=== PATIENT | male | born 1950 | race Caucasian/White ===

== ENCOUNTER 2016-11-15 09:56 | Emergency (ER) | payer MEDICAID ==
[2016-11-15 10:02] VITALS: TEMP 98.1
[2016-11-15] MEDS ORDERED: IBUPROFEN 200 MG TAB PO ONE (10:22)
[2016-11-15] MEDS ORDERED: CYCLOBENZAPRINE 10 MG TAB PO ONE (10:22)
--- NOTE | 2016-11-15 10:22 | EDPHY ---
H & P Smoking Status: Heavy smoker Time Seen by Provider: 11/15/16 10:19 HPI/ROS: HPI: Mr. 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 Does not know any injuries in the last 2 days. Patient is homeless and sleeps in his vehicle. No history kidney stone. Patient reports that the pain that he is feeling today is nonradiating, aching, more towards the right side and similar to prior episodes of low back pain exacerbation. Modifying Factors: Has not tried any [id number]-pab-[id number] pain medication Comment: ROS: Eyes: No blurred vision Respiratory: No shortness of breath, no cough Cardiovascular: No chest pain Gastrointestinal: No nausea, no vomiting no diarrhea Genitourinary: No dysuria Extremities: No myalgias Neurologic: No weakness, no numbness Skin: No rashes Hematologic: No bruising, no bleeding MEDICAL/SURGICAL HISTORY: Hypertension, chronic low back pain, hyperlipidemia, bipolar, schizoaffective disorder (Elyssa Burton) Social History: Homeless. Does follow with [facility]. Reports compliance with his psychiatric medications. (Elyssa Burton) Physical Exam: CONSTITUTIONAL: Pleasant adult white male, awake and alert, no obvious distress HEENT: Atraumatic and normocephalic, PERRL, EOMI. Tympanic membranes clear. . Oropharynx clear, no exudate and moist pink mucosa. Airway patent. No lymphadenopathy. No meningismus. Cardiovascular: Normal S1/S2, regular rate, regular rhythm, without murmur rub or gallop. PULMONARY/CHEST: Symmetrical and nontender. Clear to auscultation bilaterally Good air movement. No accessory muscle usage. ABDOMEN: Soft, nondistended, nontender, no rebound, no guarding, no peritoneal signs, no masses or organomegaly. No CVAT. EXTREMITIES: 2/2 pulses, no deformities, no clubbing, no cyanosis or edema. BACK: Mild right lumbar paraspinous muscle tenderness, paraspinal muscle spasm , deep tendon reflexes 2/2, mild pain with right straight leg raise, no pain with left straight leg raise, good flexion extension and rotation. Able to walk on heels and toes without difficulty. NEUROLOGICAL: no focal neuro deficits. GCS 15. SKIN: Warm and dry, no erythema. no rash. Good capillary refill. (Elyssa Burton) Constitutional: Initial Vital Signs Temperature (C) 36.7 C 11/15/16 09:59 Heart Rate 100 11/15/16 09:59 Respiratory Rate 18 11/15/16 09:59 Blood Pressure 121/92 H 11/15/16 09:59 O2 Sat (%) 94 11/15/16 09:59 O2 Delivery Mode Room Air Allergies/Adverse Reactions: No Known Allergies Allergy (Verified 01/18/16 10:15) Home Medications: Medication Instructions Recorded [place] Carbonate [[place] 300 mg PO DAILY #2 cap 07/12/15 Carbonate Cap 300 mg (RX)] QUEtiapine FUMARATE [SEROquel] 200 mg PO DAILY #1 tab 07/12/15 clonazePAM [KlonOPIN] 1 mg PO BID #4 tab 07/12/15 [place] Carbonate ER [Eskalith Cr 450 mg PO DAILY #3 tab 01/17/16 450 mg (*)] QUEtiapine FUMARATE [Seroquel 300 mg PO HS #3 tab 01/17/16 300mg (*)] clonazePAM [klonoPIN (*)] 1 mg PO BID #6 tab 01/17/16 Cyclobenzaprine [Flexeril 10 MG 10 mg PO TID PRN #15 tab 11/15/16 (*)] Lidocaine 5% [Lidoderm 5% Patch 1 ea TD DAILY #10 patch 11/15/16 (*)] Medical Decision Making - Diagnostics Imaging Results: Imaging Impressions Lumbar Spine X-Ray 11/15/16 10:05 Impression: Advanced L4-L5 degenerative disk disease. ED Course/Re-evaluation: Lumbosacral x-ray, urinalysis, oral medications ordered Lumbar spine x-ray reviewed and shows L4-L5 disc space narrowing and moderate degenerative changes. advised RICE, NSAIDS, muscle relaxers and lidoderm patch prn Symptoms persist would benefit from an MRI outpatient No signs of neurovascular compromise, fracture, cauda equina syndrome, saddle anesthesia After 2 hours in the ER patient unable to give urine sample despite given oral liquids. No urinary symptoms. Low risk for urinary tract infection kidney stone. Moderate relief of pain at discharge (Elyssa Burton) The patient was evaluated and managed by the physician operations and intelligence assistant. I have reviewed this chart and I agree with the findings and plan of care as documented , as indicated by my signature. I am the secondary supervising physician. (Elaina Haile) Differential Diagnosis: Back pain including but not limited to muscular pain, herniated disc, spine fracture, intra-abdominal causes and urinary tract infection. (Elyssa Burton) - Data Points Medications Given: Discontinued Medications Cyclobenzaprine HCl (Flexeril) 10 mg PO EDNOW ONE Stop: 11/15/16 10:23 Last Admin: 11/15/16 10:29 Dose: 10 mg Ibuprofen (Motrin) 800 mg PO EDNOW ONE Stop: 11/15/16 10:23 Last Admin: 11/15/16 10:28 Dose: 800 mg Departure - Departure Disposition: Home, Routine, Self-Care Clinical Impression: Degenerative lumbar disc Lumbar back pain Qualifiers: Chronicity: chronic Back pain laterality: right Sciatica presence: without sciatica Qualified Code(s): M54.5 - Low back pain Condition: Good Instructions: Low Back Strain (ED), Chronic Back Pain (ED), Lower Back Exercises (ED) Referrals: Patient,NotPresent [Unknown] - As per Instructions [facility],. [Clinic] - As per Instructions Prescriptions: Cyclobenzaprine [Flexeril 10 MG (*)] 10 mg PO TID PRN #15 tab PRN Reason: Spasms Lidocaine 5% [Lidoderm 5% Patch (*)] 1 ea TD DAILY #10 patch
[2016-11-15 11:13] VITALS: BP 104/75; PULSE 81; RESP 16; O2SAT 95
== END 2016-11-15 11:17 | disposition home or self-care (01) ==
LOC: EDUNIT#
DX: M51.36 Other intervertebral disc degeneration, lumbar region (principal); F17.200 Nicotine dependence, unspecified, uncomplicated; I10 Essential (primary) hypertension

== ENCOUNTER 2016-11-21 21:10 | Emergency (ER) | payer MEDICAID ==
--- NOTE | 2016-11-21 23:08 | EDPHY ---
H & P Stated Complaint: chronic back pain Source: Patient - Personal History Current Tetanus Diphtheria and Acellular Pertussis (TDAP): Yes Tetanus Vaccine Date: 2006 - Medical/Surgical History Hx Asthma: No Hx Chronic Respiratory Disease: No Hx Diabetes: No Hx Cardiac Disease: No Hx Renal Disease: No Hx Cirrhosis: No Hx Alcoholism: Yes Hx HIV/AIDS: No Hx Splenectomy or Spleen Trauma: No Other PMH: HTN, Hyperlipidemia, bipolar, schizoaffective - Social History Smoking Status: Heavy smoker HPI/ROS: CHIEF COMPLAINT: Back pain, out of Flexeril HISTORY OF PRESENT ILLNESS: Patient complains of being out of his Flexeril and having back pain. He will not provide any specific details, and and it is difficult to discern his words at times. He says that his back has been hurting him more and that he took his last Flexeril several days ago. He denies chest or abdominal pain. He will not answer any further questions, thus I cannot obtain any other history, associated complaints or modifying factors. Patient is reportedly homeless living at a intermediate locally. REVIEW OF SYSTEMS: Ten systems reviewed and are negative unless otherwise noted in the HPI PAST MEDICAL HISTORY: Multiple. Reviewed with patient as documented SOCIAL HISTORY: Smoker. Currently homeless living in shelters. FAMILY HISTORY: Noncontributory EXAMINATION General Appearance: Somnolent, no distress, unkempt Head: normocephalic, atraumatic Eyes: Pupils equal and round, no conjunctival pallor or injection. No nystagmus or dysconjugate gaze. Will not follow commands to test EOMs. ENT, Mouth: Mucous membranes moist. Airway patent Neck: Normal inspection, supple, non-tender Respiratory: Lungs are clear to auscultation. No wheezing, rhonchi or crackles Cardiovascular: Regular rate and rhythm. No murmur Gastrointestinal: Obese Abdomen is soft and nontender. Nondistended. No rigidity. No guarding. Back: Soft tissue tenderness in the lumbar spine, no bony abnormalities. No crepitus, step-off or deformity. He will not follow commands well enough to test full range of motion Neurological: Alert to person and place. Will answer my questions regarding time and scenario. Moving all 4 extremities spontaneously. Strength and will be tested due to lack of cooperation Skin: Warm and dry, no rash. Multiple areas of nonspecific dermatitis. No lacerations abrasions or contusions. Extremities: Nontender, no pedal edema Psychiatric: Mood and affect normal DIFFERENTIAL DIAGNOSES: Including but not limited to acute alcohol intoxication, polysubstance abuse, somnolence, dehydration, back pain, toxic lithium, accidental overdose MDM: 11:05 p.m. Chronic back pain with complaint of worsening back pain and lack of Flexeril as he ran out of a. Patient does appear to be intoxicated, thus I will obtain a breath alcohol test. He is in no acute distress. Benign abdominal examination. No midline tenderness of the back on examination. No neurovascular abnormalities distally that would suggest acute cord compression or cauda equina. No abdominal pain. 11:10 p.m. Breath alcohol test is 0. Given the patient's somnolence and difficulty focusing , a border multiple laboratory studies. I did not order an x-ray of the lumbar spine as he have 1 perform less than 1 week ago here. 12:30 A.M. I have re-evaluated the patient. He is now more awake and less somnolent that he 1st was during my 1st examination. CBC, chemistry and ammonia level are all negative labs. Chest x-ray reveals a possible early left lower lobe pneumonia. Clinically I do not appreciate this on examination. Given the patient's homeless status and currently residing at shelters, I will treat him empirically. Treat him with Zithromax and albuterol inhaler. I will refer him back to [facility] for ongoing back pain that he complains of. No evidence of acute cord compression or cauda equina on this examination this evening. SUPERVISION: Patient was evaluated in conjunction with the supervising physician. Please see their note for details. (Kwadwo Alcocer) 256AM: I did re-evaluate the patient. He is resting comfortably. He is conversive. He is homeless. He has no complaints at this time. He is requesting to sleep. 0553AM: Patient ambulated well throughout the emergency room. He is no longer sleepy. Wide awake. He is agreeable on discharge. Antibiotic azithromycin provided albuterol inhaler provided. Vital signs stable. Blood work stable. Chronic back pain. No leg weakness no saddle anesthesia no fever. No signs of cauda equina. Recommend following up his primary care doctor return emergency room there is any worsening symptoms questions or concerns he understands. ( Angel Solomon) Constitutional: Initial Vital Signs Temperature (C) 37 C 11/21/16 21:18 Heart Rate 100 11/21/16 21:18 Respiratory Rate 14 11/21/16 21:18 Blood Pressure 117/86 H 11/21/16 21:18 O2 Sat (%) 90 L 11/21/16 21:18 O2 Delivery Mode Room Air Allergies/Adverse Reactions: No Known Allergies Allergy (Verified 11/21/16 21:18) Home Medications: Medication Instructions Recorded [place] Carbonate [[place] 300 mg PO DAILY #2 cap 07/12/15 Carbonate Cap 300 mg (RX)] QUEtiapine FUMARATE [SEROquel] 200 mg PO DAILY #1 tab 07/12/15 clonazePAM [KlonOPIN] 1 mg PO BID #4 tab 07/12/15 [place] Carbonate ER [Eskalith Cr 450 mg PO DAILY #3 tab 01/17/16 450 mg (*)] QUEtiapine FUMARATE [Seroquel 300 mg PO HS #3 tab 01/17/16 300mg (*)] clonazePAM [klonoPIN (*)] 1 mg PO BID #6 tab 01/17/16 Cyclobenzaprine [Flexeril 10 MG 10 mg PO TID PRN #15 tab 11/15/16 (*)] Lidocaine 5% [Lidoderm 5% Patch 1 ea TD DAILY #10 patch 11/15/16 (*)] Azithromycin [Zithromax] 250 mg PO DAILY #4 tab 11/22/16 Departure - Departure Disposition: Home, Routine, Self-Care Clinical Impression: Chronic back pain Qualifiers: Back pain location: low back pain Back pain laterality: unspecified Sciatica presence: without sciatica Qualified Code(s): M54.5 - Low back pain Pneumonia Qualifiers: Pneumonia type: due to unspecified organism Laterality: left Lung location: lower lobe of lung Qualified Code(s): J18.1 - Lobar pneumonia, unspecified organism Condition: Good Instructions: Acute Bronchitis (ED), Bacterial Pneumonia (ED), Chronic Back Pain (ED), Lower Back Exercises (ED) Referrals: NONE *PRIMARY CARE P,. [Primary Care Provider] - As per Instructions Marley Ram DO [Doctor of Osteopathy] - As per Instructions [facility],. [Clinic] - As per Instructions Prescriptions: Azithromycin [Zithromax] 250 mg PO DAILY #4 tab
[2016-11-21] MEDS ORDERED: NS 1,000 ML IV ONE (23:10)
[2016-11-21 23:44] LABS: ANION GAP 7 mEq/L (8-16); CALCIUM 8.7 mg/dL (8.5-10.4); CARBON DIOXIDE 22 mEq/l (22-31); CHLORIDE 110 mEq/L (97-110); CREATININE 0.7 mg/dL (0.7-1.3); ETHANOL SERUM < 10 mg/dL (0-10); GLOMERULAR FILTRATION RATE > 60; GLUCOSE 96 mg/dL (70-100); LITHIUM 0.3 mEq/L (0.6-1.2); SALICYLATE < 1.0 mg/dL (2.0-20.0); SODIUM 139 mEq/L (134-144)
[2016-11-21 23:53] LABS: % IMMATURE GRANULYOCYTES 0.3 % (0.0-1.1); ABSOLUTE IMMATURE GRANULOCYTES 0.02 10^3/uL (0.00-0.10); ADD DIFF? NO; ADD MORPH? NO; ADD SCAN? YES; ATYPICAL LYMPHOCYTE FLAG 10 (0-99); FRAGMENT RBC FLAG 0 (0-99); HEMATOCRIT 41.8 % (40.0-51.0); HEMOGLOBIN 14.1 g/dL (13.7-17.5); LEFT SHIFT FLG 0 (0-99); LIPEMIA HEMOLYSIS FLAG 80 (0-99); MEAN CELL HEMOGLOBIN 30.9 pg (27.9-34.1); MEAN CELL HEMOGLOBIN CONCENTR. 33.7 g/dL (32.4-36.7); MEAN CELL VOLUME 91.7 fL (81.5-99.8); MEAN PLATELET VOLUME 11.2 fL (8.7-11.7); PLATELET COUNT 185 10^3/uL (150-400); RED BLOOD CELL COUNT 4.56 10^6/uL (4.40-6.38); RED CELL DISTRIBUTION WIDTH 13.8 % (11.5-15.2)
[2016-11-22 00:02] LABS: PLATELET CLUMPS FLAG 300 (0-99)
[2016-11-22 00:14] LABS: SCAN NEGATIVE
[2016-11-22] MEDS ORDERED: ALBUTEROL INH PREPACK MDI TAKEHOME ONE ×2 (00:52→05:47)
[2016-11-22] MEDS ORDERED: AZITHROMYCIN 250 MG TAB PO ONE ×2 (00:52→05:47)
[2016-11-22 03:16] LABS: COLOR YELLOW; LEUKOCYTE ESTERASE,URINE NEGATIVE (NEGATIVE); NITRITE,URINE NEGATIVE (NEGATIVE)
[2016-11-22 03:18] LABS: BACTERIA TRACE /hpf (NONE SEEN); MUCUS TRACE /lpf (NONE-1+)
[2016-11-22 05:57] VITALS: RESP 18
[2016-11-22 05:59] VITALS: BP 145/89; PULSE 90; TEMP 98.4; O2SAT 96
== END 2016-11-22 05:58 | disposition home or self-care (01) ==
LOC: EDUNIT#
DX: M54.5 Low back pain (principal); J18.9 Pneumonia, unspecified organism; I10 Essential (primary) hypertension; F17.200 Nicotine dependence, unspecified, uncomplicated; E86.9 Volume depletion, unspecified
CPT/HCPCS: 80305; G0480

== ENCOUNTER 2016-12-01 17:42 | Emergency (ER) | payer MEDICAID ==
[2016-12-01 18:24] LABS: % IMMATURE GRANULYOCYTES 0.4 % (0.0-1.1); ABSOLUTE IMMATURE GRANULOCYTES 0.03 10^3/uL (0.00-0.10); ADD DIFF? NO; ADD MORPH? NO; ADD SCAN? NO; ATYPICAL LYMPHOCYTE FLAG 20 (0-99); FRAGMENT RBC FLAG 0 (0-99); HEMATOCRIT 44.5 % (40.0-51.0); HEMOGLOBIN 14.8 g/dL (13.7-17.5); LEFT SHIFT FLG 0 (0-99); LIPEMIA HEMOLYSIS FLAG 80 (0-99); MEAN CELL HEMOGLOBIN CONCENTR. 33.3 g/dL (32.4-36.7); MEAN CELL VOLUME 93.1 fL (81.5-99.8); PLATELET CLUMPS FLAG 0 (0-99); PLATELET COUNT 327 10^3/uL (150-400); RED BLOOD CELL COUNT 4.78 10^6/uL (4.40-6.38); RED CELL DISTRIBUTION WIDTH 13.7 % (11.5-15.2)
[2016-12-01 18:40] LABS: ANION GAP 12 mEq/L (8-16); CALCIUM 9.4 mg/dL (8.5-10.4); CARBON DIOXIDE 21 mEq/l (22-31); CHLORIDE 110 mEq/L (97-110); CREATININE 0.7 mg/dL (0.7-1.3); ETHANOL SERUM < 10 mg/dL (0-10); GLOMERULAR FILTRATION RATE > 60; GLUCOSE 91 mg/dL (70-100); POTASSIUM 3.9 mEq/L (3.5-5.2); SODIUM 143 mEq/L (134-144)
[2016-12-01 19:08] VITALS: RESP 16
--- NOTE | 2016-12-01 19:37 | EDPHY ---
Mental Health [facility] Previous Psychiatric History: previous inpatient psychiatric admission, schizophrenia, bipolar, substance abuse Smoking Status: Heavy smoker Time Patient Placed on M1 Hold: 17:25 Time Medically Cleared for Psychiatric Evaluation: 20:20 Time of Transfer of Care: 01:[address]:: Ying Narrative: I assumed care of the patient at 7 o'clock in the morning pending psychiatric disposition. The patient remained cooperative throughout his stay in the emergency department. He was seen in consultation by the psychiatric service. They recommend inpatient hospitalization. The patient was accepted for inpatient admission at [facility] by Dr. Garay. I have filled out the EMTALA transfer form at 0900 AM. (Marcial Key) CHIEF COMPLAINT: M1 hold HISTORY OF PRESENT ILLNESS: 66-year-old male presents to the emergency department by police on an M1 hold. Bystanders called the police after the patient was seen agitated and flipping chairs over on a deck on the [facility]. Patient reports he was hearing voices telling him to do so. He has a history of bipolar and schizophrenia and reports he has not taken his medications for 1 or 2 weeks. Patient is seen at [facility]. Patient denies suicidal or homicidal ideations. He reports he got out of [facility] about 3 weeks ago. He states he did not hear any voices while he was in [facility] for 12 months though they started increasing after [facility] and increased significantly over the last 2 weeks with no medications. He denies drug use. Reports minimal alcohol use. He denies fevers or chills, no chest pain or shortness of breath. REVIEW OF SYSTEMS: A comprehensive 10 point review of systems is otherwise negative aside from elements mentioned in the history of present illness. Physical Exam Gen: Awake, alert, no apparent distress HEENT: PERRL, moist mucous membranes NECK: no meningismus CV: regular rate and regular rhythm PULM: CTAB, no wheezes ABDOMEN: Obese, soft, non tender to palpation, BS present NEURO: Neurologically grossly intact EXTREMITIES: normal appearing SKIN: no rash or break in skin on exposed skin PSYCH: Suspicious, denies suicidal ideations, denies homicidal ideations, reports auditory and visual hallucinations (Sammie Booker) Medical Decision Makin:30 a.m.- The patient has been stable during my shift. He is currently requesting Tylenol. He is still awaiting placement at this time. Anticipate the case will be signed out to the oncoming provider Dr. Key at change of shift. ( Margot He) 0100- Report passed on to Dr. He at the end of my shift. Pt is pending placement. (Sammie Booker) Patient has been evaluated for mental health and they are looking for inpatient placement (Molina Azevedo) - Objective Vital Signs: Initial Vital Signs Temperature (C) 37 C 12/01/16 17:45 Heart Rate 95 12/01/16 17:45 Respiratory Rate 16 12/01/16 17:45 Blood Pressure 147/99 H 12/01/16 17:45 O2 Sat (%) 95 12/01/16 17:45 O2 Delivery Mode Room Air Allergies/Adverse Reactions: No Known Allergies Allergy (Verified 11/21/16 21:18) Home Medications: Medication Instructions Recorded [employer] Carbonate [[employer] 300 mg PO DAILY #2 cap 07/12/15 Carbonate Cap 300 mg (RX)] QUEtiapine FUMARATE [SEROquel] 200 mg PO DAILY #1 tab 07/12/15 clonazePAM [KlonOPIN] 1 mg PO BID #4 tab 07/12/15 [employer] Carbonate ER [Eskalith Cr 450 mg PO DAILY #3 tab 01/17/16 450 mg (*)] QUEtiapine FUMARATE [Seroquel 300 mg PO HS #3 tab 01/17/16 300mg (*)] clonazePAM [klonoPIN (*)] 1 mg PO BID #6 tab 01/17/16 Cyclobenzaprine [Flexeril 10 MG 10 mg PO TID PRN #15 tab 11/15/16 (*)] Lidocaine 5% [Lidoderm 5% Patch 1 ea TD DAILY #10 patch 11/15/16 (*)] Medications Given: Discontinued Medications Acetaminophen (Tylenol) 325 mg PO EDNOW ONE Stop: 12/02/16 06:51 Last Admin: 12/02/16 07:44 Dose: 325 mg Laboratory Results: Laboratory Results 12/01/16 18:09 12/01/16 18:09 Departure - Departure Disposition: Other Psych, Not [place] Clinical Impression: Schizo-affective schizophrenia, chronic condition with acute exacerbation Condition: Fair Referrals: Sarita Hercules MD [Primary Care Provider] - As per Instructions
[2016-12-01 19:43] LABS: LITHIUM < 0.2 mEq/L (0.6-1.2)
[2016-12-02] MEDS ORDERED: ACETAMINOPHEN 325 MG TAB PO ONE (06:50)
[2016-12-02 09:55] VITALS: BP 144/80; PULSE 90; TEMP 97.5; O2SAT 94
== END 2016-12-02 10:06 ==
DX: F25.9 Schizoaffective disorder, unspecified (principal); F17.200 Nicotine dependence, unspecified, uncomplicated
CPT/HCPCS: 80305; G0480

== ENCOUNTER 2016-12-28 23:16 | Emergency (ER) | payer MEDICAID ==
--- NOTE | 2016-12-29 00:13 | EDPHY ---
General Narrative: CHIEF COMPLAINT: Fall, back pain HISTORY OF PRESENT ILLNESS: Patient complains of mechanical fall. He was pushing a shopping cart down the trail when he tripped and fell. He reportedly fell backwards landing on his back and head. He struck his head but did not lose consciousness. He complains of pain in the soft tissue of the neck and on the back bilaterally. He has no midline tenderness of the back. No saddle anesthesia. No incontinence of bowel or bladder. The pain was more severe when happened several hours ago. It is now minimal. He is resting on the bed and says that the pain is minimal. No incontinence. No chest pain or shortness of breath. No abdominal pain. No injuries to the arms or legs. No other associated complaints or modifying factors. Does not take any anticoagulants ESTABLISHED ORTHOPEDIST: None REVIEW OF SYSTEMS: Ten systems reviewed and are negative unless otherwise noted in the HPI PAST MEDICAL HISTORY: Bipolar disorder, schizoaffective disorder, chronic pain PAST SURGICAL HISTORY: Reviewed SOCIAL HISTORY: Smoker. Currently homeless. No primary care physician FAMILY HISTORY: Noncontributory EXAMINATION General Appearance: Alert, no distress, unkempt HEENT: Head is normocephalic and atraumatic. Pupils equal round reactive to light. No dysconjugate gaze. No nystagmus. EOMs intact. Neck: Supple nontender. C-collar was in place but the patient keeps removing this. I did not test range of motion. I have recommended the patient keep the C-collar in place. Trachea is midline Respiratory: Lungs are clear in all gregorio. No wheezing, rhonchi, crackles or consolidation Cardiovascular: Pulses normal throughout. Regular rhythm. No murmur Brisk cap refill Back: No midline tenderness. No crepitus, step-off or deformity. There is soft tissue tenderness of bilateral lumbar musculature. Neurological: GCS 15. A&O, sensory symmetric, strength symmetric. No pronator drift. No dysmetria. Symmetric patellar reflexes. Skin: Warm and dry, no rash. No lacerations abrasions or contusions. Unkempt skin Extremities: Nontender, no pedal edema symmetric range of motion all 4 limbs Psychiatric: Mood and affect normal DIFFERENTIAL DIAGNOSES: Including but not limited to contusion, closed head injury, soft tissue hematoma , strain, sprain MDM: 12:10 a.m. Mechanical fall with closed head injury. No anticoagulants. Vital signs within normal limits. CT scans of the head cervical spine ordered. No other imaging indicated at this time. Neuro exam is within normal limits. 1:[address]s of the head and cervical spine have been read by Dr. Swanson. There are chronic changes but no acute findings. Likely soft tissue injuries of the neck and low back without any midline tenderness or injuries. There is no evidence of acute cord compression or cauda equina. Lungs are clear. He is ambulatory without assistance. Discharge home and follow up with [facility] ED Precautions: Worsening pain. Erythema, edema, cyanosis, pallor, paresthesia or anesthesia. - History Smoking Status: Heavy smoker - Objective Vital Signs: Initial Vital Signs Temperature (C) 98.6 F 12/28/16 23:25 Heart Rate 88 12/28/16 23:25 Respiratory Rate 18 12/28/16 23:25 Blood Pressure 126/94 H 12/28/16 23:25 O2 Sat (%) 93 12/28/16 23:25 O2 Delivery Mode Room Air Allergies/Adverse Reactions: No Known Allergies Allergy (Verified 11/21/16 21:18) Home Medications: Medication Instructions Recorded [place] Carbonate [[place] 300 mg PO DAILY #2 cap 07/12/15 Carbonate Cap 300 mg (RX)] QUEtiapine FUMARATE [SEROquel] 200 mg PO DAILY #1 tab 07/12/15 clonazePAM [KlonOPIN] 1 mg PO BID #4 tab 07/12/15 [place] Carbonate ER [Eskalith Cr 450 mg PO DAILY #3 tab 01/17/16 450 mg (*)] QUEtiapine FUMARATE [Seroquel 300 mg PO HS #3 tab 01/17/16 300mg (*)] clonazePAM [klonoPIN (*)] 1 mg PO BID #6 tab 01/17/16 Cyclobenzaprine [Flexeril 10 MG 10 mg PO TID PRN #15 tab 11/15/16 (*)] Lidocaine 5% [Lidoderm 5% Patch 1 ea TD DAILY #10 patch 11/15/16 (*)] Departure - Departure Disposition: Home, Routine, Self-Care Clinical Impression: Closed head injury Qualifiers: Encounter type: initial encounter Qualified Code(s): S09.90XA - Unspecified injury of head, initial encounter Fall Qualifiers: Encounter type: initial encounter Qualified Code(s): W19.XXXA - Unspecified fall, initial encounter Back pain Qualifiers: Back pain location: low back pain Chronicity: acute Back pain laterality: bilateral Sciatica presence: without sciatica Qualified Code(s): M54.5 - Low back pain Condition: Good Instructions: Concussion (ED), Head Injury (ED), Low Back Strain (ED) Referrals: NONE *PRIMARY CARE P,. [Primary Care Provider] - As per Instructions [facility],. [Clinic] - As per Instructions Rober Perez DO [Medical Doctor] - As per Instructions
[2016-12-29 00:44] VITALS: RESP 18
[2016-12-29 01:42] VITALS: BP 131/90; PULSE 76; TEMP 98.2; O2SAT 92
== END 2016-12-29 01:40 | disposition home or self-care (01) ==
LOC: EDUNIT#
DX: S09.90XA Unspecified injury of head, initial encounter (principal); S39.92XA Unspecified injury of lower back, initial encounter; F17.200 Nicotine dependence, unspecified, uncomplicated; W01.198A Fall on same level from slipping, tripping and stumbling with subsequent striking against other object, initial encounter

== ENCOUNTER 2017-01-03 17:52 | Emergency (ER) | payer MEDICAID ==
--- NOTE | 2017-01-03 18:12 | EDPHY ---
H & P Time Seen by Provider: 01/03/17 18:11 HPI/ROS: HPI: Chief Complaint: This is a 66-year-old male presents with Location: Low back pain Quality: Aching Duration: 1-2 weeks Signs and Symptoms: No bleeding, + radiation down both legs, no numbness, no weakness, no tingling, no incontinence, no decreased range of motion, no groin pain, no urinary symptoms Timing: Acute on chronic Severity: Moderate Context: Patient is homeless walks around a lot; reports; that he is wearing proper fitting shoes. He has a known history of lobe lumbar degenerative disc disease. Denies any recent injury or trauma. He reports over the last 1-2 weeks the pain has been gradually worsening to the point now that it is moderate 6 to 7/10. He has not tried any [id number] medications. He denies any incontinence/numbness/tingling. Modifying Factors: None Comment: ROS: see HPI Constitutional: No fever, no chills, no weight loss Eyes: No blurred vision Respiratory: No shortness of breath, no cough Cardiovascular: No chest pain Gastrointestinal: No nausea, no vomiting no diarrhea Genitourinary: No dysuria Extremities: No myalgias Neurologic: No weakness, no numbness Skin: No rashes Hematologic: No bruising, no bleeding MEDICAL/SURGICAL/SOCIAL HISTORY: Medical history: Generally healthy. Does not take any regular medications. Surgical history: Denies Social history: Homeless CONSTITUTIONAL: Untidy appearance, malodorous, adult white male, awake and alert, no obvious distress HEENT: Atraumatic and normocephalic, PERRL, EOMI. Tympanic membranes clear. Oropharynx clear, no exudate and moist pink mucosa. Airway patent. No lymphadenopathy. No meningismus. Cardiovascular: Normal S1/S2, regular rate, regular rhythm, without murmur rub or gallop. PULMONARY/CHEST: Symmetrical and nontender. Clear to auscultation bilaterally. Good air movement. No accessory muscle usage. ABDOMEN: Soft, nondistended, nontender, no rebound, no guarding, no peritoneal signs, no masses or organomegaly. No CVAT. EXTREMITIES: 2/2 pulses, no deformities, no clubbing, no cyanosis or edema. PELVIC: no pain with rocking; bilateral hips flexion 100 degrees, extension 30 degrees, with mild pain internal rotation and mild pain external rotation. BACK: No midline tenderness, mild bilateral reproducible lumbar tenderness, no paraspinous spasm, deep tendon reflexes 2/2, mild pain with bilateral straight leg raise NEUROLOGICAL: no focal neuro deficits. GCS 15. Able to walk on heels and toes. SKIN: Warm and dry, no erythema. no rash. Good capillary refill. Source: Patient Exam Limitations: No limitations - Personal History Tetanus Vaccine Date: 2006 - Medical/Surgical History Hx Asthma: No Hx Chronic Respiratory Disease: No Hx Diabetes: No Hx Cardiac Disease: No Hx Renal Disease: No Hx Cirrhosis: No Hx Alcoholism: Yes Hx HIV/AIDS: No Hx Splenectomy or Spleen Trauma: No Other PMH: HTN, Hyperlipidemia, bipolar, schizoaffective - Social History Smoking Status: Heavy smoker Constitutional: Initial Vital Signs Temperature (C) 37.0 C 01/03/17 18:51 Heart Rate 98 01/03/17 18:51 Respiratory Rate 18 01/03/17 18:51 Blood Pressure 108/82 H 01/03/17 18:51 O2 Sat (%) 92 01/03/17 18:51 O2 Delivery Mode Room Air Allergies/Adverse Reactions: No Known Allergies Allergy (Verified 11/21/16 21:18) Home Medications: Medication Instructions Recorded Dunfermline Carbonate [Dunfermline 300 mg PO DAILY #2 cap 07/12/15 Carbonate Cap 300 mg (RX)] QUEtiapine FUMARATE [SEROquel] 200 mg PO DAILY #1 tab 07/12/15 clonazePAM [KlonOPIN] 1 mg PO BID #4 tab 07/12/15 Dunfermline Carbonate ER [Eskalith Cr 450 mg PO DAILY #3 tab 01/17/16 450 mg (*)] QUEtiapine FUMARATE [Seroquel 300 mg PO HS #3 tab 01/17/16 300mg (*)] clonazePAM [klonoPIN (*)] 1 mg PO BID #6 tab 01/17/16 Cyclobenzaprine [Flexeril 10 MG 10 mg PO TID PRN #15 tab 11/15/16 (*)] Lidocaine 5% [Lidoderm 5% Patch 1 ea TD DAILY #10 patch 11/15/16 (*)] Lidocaine 5% [Lidoderm 5% Patch 1 ea TD DAILY #6 patch 01/03/17 (*)] methylPREDNISolone [Medrol Dose 1 each PO AD #0 ea 01/03/17 Rai] Medical Decision Making - Diagnostics Imaging Results: Imaging Impressions Lumbar Spine X-Ray 01/03/17 18:23 Impression: No acute osseous normality. Advanced L4-L5 degenerative disk disease and lower lumbar facet arthrosis, similar to prior exam. Pelvis X-Ray 01/03/17 18:23 Impression: No acute osseous abnormality. ED Course/Re-evaluation: Lumbar sacral x-ray, pelvic x-rays, medications ordered Given IV Decadron, PO Neurontin and a topical Lidoderm patch with moderate relief of pain No signs of neurovascular compromise/tenting of skin/compartment syndrome/ extremities and joints examined above and below area of concern and are neurovascularly intact. X-rays my read show; significant degenerative disc disease Reassessed patient, and he was walking around the back arias. He then ate a sandwich without any difficulty. Differential Diagnosis: Back pain including but not limited to muscular pain, herniated disc, spine fracture, intra-abdominal causes and urinary tract infection. - Data Points Medications Given: Discontinued Medications Dexamethasone (Decadron Injection) 8 mg IVP EDNOW ONE Stop: 01/03/17 18:24 Last Admin: 01/03/17 19:32 Dose: 8 mg Gabapentin (Neurontin) 600 mg PO EDNOW ONE Stop: 01/03/17 18:24 Last Admin: 01/03/17 19:03 Dose: 600 mg Lidocaine (Lidoderm 5%) 1 ea TD EDNOW ONE Stop: 01/03/17 18:24 Last Admin: 01/03/17 19:02 Dose: 1 ea Departure - Departure Disposition: Home, Routine, Self-Care Clinical Impression: Lumbar radiculopathy, chronic, Lumbar degenerative disc disease Condition: Good Instructions: Sciatica (ED), Lumbar Radiculopathy (ED) Additional Instructions: Please rest as much as possible and avoid heavy lifting until pain is resolved. Perform low back exercises. [facility] You would benefit from obtaining an MRI of your lumbar region outpatient. Referrals: Caleb Caba MD [Medical Doctor] - As per Instructions [facility],. [Clinic] - As per Instructions Prescriptions: Lidocaine 5% [Lidoderm 5% Patch (*)] 1 ea TD DAILY #6 patch methylPREDNISolone [Medrol Dose Rai] 1 each PO AD #0 ea
[2017-01-03] MEDS ORDERED: LIDOCAINE 5% 1 EA PATCH TD ONE (18:23)
[2017-01-03] MEDS ORDERED: GABAPENTIN 300 MG CAP PO ONE (18:23)
[2017-01-03] MEDS ORDERED: DEXAMETHASONE 4 MG/ML VIAL IVP ONE (18:23)
[2017-01-03 18:53] VITALS: TEMP 98.6
[2017-01-03] MEDS ORDERED: DEXAMETHASONE 10 MG/ML VIAL ONE (19:12)
[2017-01-03 19:33] VITALS: BP 137/93; PULSE 95; RESP 16; O2SAT 93
[2017-01-03] MEDS ORDERED: PATCH REMOVAL 1 EA PATCH TD SCH (21:00)
== END 2017-01-03 19:32 | disposition home or self-care (01) ==
LOC: EDUNIT#
DX: M54.16 Radiculopathy, lumbar region (principal); M51.36 Other intervertebral disc degeneration, lumbar region; I10 Essential (primary) hypertension; F17.200 Nicotine dependence, unspecified, uncomplicated
CPT/HCPCS: J1100

== ENCOUNTER 2017-01-07 01:29 | Emergency (ER) | payer MEDICAID ==
--- NOTE | 2017-01-07 01:39 | EDPHY ---
H & P - Personal History Tetanus Vaccine Date: 2006 - Medical/Surgical History Hx Asthma: No Hx Chronic Respiratory Disease: No Hx Diabetes: No Hx Cardiac Disease: No Hx Renal Disease: No Hx Cirrhosis: No Hx Alcoholism: Yes Hx HIV/AIDS: No Hx Splenectomy or Spleen Trauma: No Other PMH: HTN, Hyperlipidemia, bipolar, schizoaffective - Social History Smoking Status: Heavy smoker Time Seen by Provider: 01/07/17 01:32 HPI/ROS: CHIEF COMPLAINT: Acute on chronic low back pain HISTORY OF PRESENT ILLNESS: 66-year-old homeless male arrives by ambulance. Patient has a history of chronic low back pain with chronic bilateral lower extremity radiculopathy. He was seen emergency department 4 days ago for same complaint, was given lidocaine patch, Decadron, Neurontin which states alleviated his symptoms. This feels like his usual back pain. No acute trauma. No saddle anesthesia. No incontinence. No retention. No fever no chills. No foot drop. PRIMARY CARE PROVIDER:the [facility] REVIEW OF SYSTEMS: A ten point review of systems was performed and is negative with the exception of the items mentioned in the HPI PAST MEDICAL & SURGICAL HISTORY: chronic back pain SOCIAL HISTORY: daily smoker, homeless PHYSICAL EXAM (Prior to examination, patient consented to physical exam, hands were washed and my usual and customary physical exam procedures followed) 1) GENERAL: Well-developed, well-nourished, alert and oriented. Appears to be in no acute distress. 2) HEAD: Normocephalic, atraumatic 3) HEENT: Pupils equal, round, reactive to light bilaterally. Sclera anicteric. 4) NECK: Full range of motion, no meningeal signs. 5) LUNGS: Clear auscultation bilaterally, no wheezes, no rhonchi, no retractions. 6) HEART: Regular rate and rhythm, no murmur, no heave, no gallop. 7) ABDOMEN: No guarding, no rebound, no focal tenderness, negative McBurney's, negative Kessler's, negative Rovsing's, negative peritoneal sign, 8) MUSCULOSKELETAL: Moving all extremities, no focal areas of tenderness, no obvious trauma. No peripheral edema or discoloration. 9) BACK: tender to palpation paraspinous muscle. No CVA tenderness, no midline vertebral tenderness, no fluctuance, no step-off, no obvious trauma, no visual or palpable abnormality. Patella, Achilles reflexes intact to bilateral strength 5/5 10) SKIN: No rash, no petechiae. 11) NEURO: Awake, alert, and oriented to person, place and time. Answers questions appropriately. There were no obvious focal neurologic abnormalities. No cerebellar dysfunction. Normal steady gait. Upper and lower extremities bilaterally with strength 5 / 5, reflexes 2+.. DIFFERENTIAL DIAGNOSIS: In no particular order, including but not limited to, fracture, sprain/strain, cauda equina, spinal infectious etiology. MEDICAL DECISION MAKING Old medical records reviewed. Lower index of suspicion for cauda equina, epidural abscess, epidural hematoma, lumbar myositis, diskitis, as the patient is neurologically intact in the lower extremities, has patella and Achilles reflexes intact and equal bilaterally, has no neurologic deficits, no incontinence, no retention, no midline pain, no fluctuance, afebrile, no flulike symptoms. At this point I do not identify definitive indication for emergent MRI, however patient may necessitate this on an outpatient basis. I recommend he follow up with Neurosurgery and have given him the information previously given to him of Dr. Marcus lai. He was given a Medrol Dosepak and lidocaine patch prescription as well as given dose of Neurontin and lidocaine patch in the emergency department. Patient given acute back pain precautions. Patient verbalizes understanding of discharge instructions. I believe them be competent decision-makers. All questions and concerns have been addressed by me. Ample opportunity for questions have been provided . The patient understands that this diagnosis is provisional and can never be 100% accurate. Usual and customary warnings were given concerning the clinical impression and all the patient's questions were answered. The patient was instructed to return to the emergency department should her symptoms worsen or return, or develop any new symptoms, otherwise to followup as directed in discharge instructions. (Maulik Smith) Constitutional: Initial Vital Signs Temperature (C) 36.5 C 01/07/17 01:37 Heart Rate 97 01/07/17 01:37 Respiratory Rate 16 01/07/17 01:37 Blood Pressure 112/85 H 01/07/17 01:37 O2 Sat (%) 94 01/07/17 01:37 O2 Delivery Mode Room Air Allergies/Adverse Reactions: No Known Allergies Allergy (Verified 01/07/17 01:39) Home Medications: Medication Instructions Recorded Lidocaine 5% [Lidoderm 5% Patch 1 ea TD DAILY #10 patch 11/15/16 (*)] Lidocaine 5% [Lidoderm 5% Patch 1 ea TD DAILY #6 patch 01/03/17 (*)] Lidocaine 5% [Lidoderm 5% Patch 1 ea TD BID #30 patch 01/07/17 (*)] Vistaril 01/07/17 Medical Decision Making Other Provider: PHYSICIAN DOCUMENTATION: The patient was evaluated and managed by the Physician Pulvi Mixer Operator. My co- signature indicates that I have reviewed this chart and I agree with the findings and plan of care as documented. I am the secondary supervising physician. (Margot He) - Data Points Medications Given: Discontinued Medications Cyclobenzaprine HCl (Flexeril) 10 mg PO EDNOW ONE Stop: 01/07/17 01:42 Last Admin: 01/07/17 01:48 Dose: 10 mg Gabapentin (Neurontin) 600 mg PO EDNOW ONE Stop: 01/07/17 01:42 Last Admin: 01/07/17 01:48 Dose: 600 mg Lidocaine (Lidoderm 5%) 1 ea TD ONCE ONE Stop: 01/07/17 01:42 Last Admin: 01/07/17 01:48 Dose: 1 ea Departure - Departure Disposition: Home, Routine, Self-Care Clinical Impression: Chronic low back pain Qualifiers: Back pain laterality: bilateral Sciatica presence: with sciatica Sciatica laterality: bilateral sciatica Qualified Code(s): M54.42 - Lumbago with sciatica , left side Condition: Good Instructions: Chronic Back Pain (ED) Additional Instructions: Seek medical attention if you develop new or worsening pain, if you develop bladder or bowel dysfunction, numbness around your perineum, foot drop, or any other symptoms that concern you. Referrals: Caleb Caba MD [Medical Doctor] - 2-3 days, call for appt. [facility],. [Clinic] - 2-3 days, call for appt. Prescriptions: Lidocaine 5% [Lidoderm 5% Patch (*)] 1 ea TD BID #30 patch
[2017-01-07 01:41] VITALS: BP 112/85; PULSE 97; RESP 16; TEMP 97.7; O2SAT 94
[2017-01-07] MEDS ORDERED: LIDOCAINE 5% 1 EA PATCH TD ONE (01:41)
[2017-01-07] MEDS ORDERED: CYCLOBENZAPRINE 10 MG TAB PO ONE (01:41)
[2017-01-07] MEDS ORDERED: GABAPENTIN 300 MG CAP PO ONE (01:41)
== END 2017-01-07 01:56 | disposition home or self-care (01) ==
LOC: EDUNIT#
DX: M54.42 Lumbago with sciatica, left side (principal); F17.200 Nicotine dependence, unspecified, uncomplicated; I10 Essential (primary) hypertension

== ENCOUNTER 2017-01-08 20:17 | Emergency (ER) | payer MEDICAID ==
[2017-01-08 21:18] LABS: % IMMATURE GRANULYOCYTES 0.3 % (0.0-1.1); ABSOLUTE IMMATURE GRANULOCYTES 0.02 10^3/uL (0.00-0.10); ADD DIFF? NO; ADD MORPH? NO; ADD SCAN? NO; ATYPICAL LYMPHOCYTE FLAG 0 (0-99); FRAGMENT RBC FLAG 0 (0-99); HEMATOCRIT 44.4 % (40.0-51.0); HEMOGLOBIN 15.2 g/dL (13.7-17.5); LEFT SHIFT FLG 0 (0-99); LIPEMIA HEMOLYSIS FLAG 90 (0-99); MEAN CELL HEMOGLOBIN CONCENTR. 34.2 g/dL (32.4-36.7); MEAN CELL VOLUME 90.4 fL (81.5-99.8); MEAN PLATELET VOLUME 10.1 fL (8.7-11.7); PLATELET CLUMPS FLAG 10 (0-99); PLATELET COUNT 232 10^3/uL (150-400); RED BLOOD CELL COUNT 4.91 10^6/uL (4.40-6.38); RED CELL DISTRIBUTION WIDTH 12.1 % (11.5-15.2)
[2017-01-08 21:24] LABS: ANION GAP 11 mEq/L (8-16); CALCIUM 9.3 mg/dL (8.5-10.4); CARBON DIOXIDE 22 mEq/l (22-31); CHLORIDE 107 mEq/L (97-110); CREATININE 0.7 mg/dL (0.7-1.3); GLOMERULAR FILTRATION RATE > 60; GLUCOSE 114 mg/dL (70-100); POTASSIUM 3.9 mEq/L (3.5-5.2); SODIUM 140 mEq/L (134-144)
[2017-01-08 21:30] LABS: ETHANOL SERUM < 10 mg/dL (0-10)
--- NOTE | 2017-01-08 22:12 | EDPHY ---
H & P Smoking Status: Heavy smoker Time Seen by Provider: 01/08/17 20:18 HPI/ROS: CHIEF COMPLAINT: History of schizoaffective disorder HISTORY OF PRESENT ILLNESS: 66-year-old male presents to the emergency department feeling increasingly depressed. He has a history of schizoaffective disorder and has been unable to obtain his medications. He was recently at [facility] and feels that he needs to be readmitted for psychiatric reasons. He has had suicidal thoughts. He has no plan. No homicidal ideation. He is having auditory hallucinations. No visual hallucinations. Patient is homeless and staying at the homeless care home. He denies substance abuse. Currently he has no other physical complaints. REVIEW OF SYSTEMS: Constitutional: No fever, no chills. Eyes: No double or blurry vision. ENT: No sore throat. Respiratory: No cough, no shortness of breath. Cardiac: No chest pain. Gastrointestinal: No abdominal pain, vomiting or diarrhea. Genitourinary: No dysuria. Musculoskeletal: No neck or back pain. Skin: No rashes. Neurological: No headache. (Genoveva Arenas) Past Medical/Surgical History: Schizoaffective disorder (Genoveva Arenas) Social History: Homeless (Genoveva Arenas) Physical Exam: General Appearance: Alert, no distress. Vital signs are stable. No signs of trauma to his head. Eyes: Pupils equal and round. Extraocular motions are all intact. ENT: Mouth: Mucous membranes moist. Respiratory: No wheezing, rhonchi, or rales, lungs are clear to auscultation. Cardiovascular: Regular rate and rhythm. Gastrointestinal: Abdomen is soft and nontender, no masses, no rebound or guarding, bowel sounds normal. Neurological: Alert and oriented x 3, cranial nerves II through XII grossly intact Skin: Warm and dry, no rashes. Musculoskeletal: Nontender to palpate along the cervical, thoracic or lumbar spine. Neck is supple. Extremities: Full range of motion and no peripheral edema. Psychiatric: Patient is oriented X 3, there is no agitation. (Genoveva Arenas) Constitutional: Initial Vital Signs Temperature (C) 36.6 C 01/08/17 20:25 Heart Rate 81 01/08/17 20:25 Respiratory Rate 18 01/08/17 20:25 Blood Pressure 115/78 01/08/17 20:25 O2 Sat (%) 94 01/08/17 20:25 O2 Delivery Mode Room Air Allergies/Adverse Reactions: No Known Allergies Allergy (Verified 01/07/17 01:39) Home Medications: Medication Instructions Recorded Lidocaine 5% [Lidoderm 5% Patch 1 ea TD BID #30 patch 01/07/17 (*)] Vistaril 01/07/17 INVEGA SUSTENNA 01/08/17 Medical Decision Making ED Course/Re-evaluation: 66-year-old male with a history of schizoaffective disorder presents with stating that he is hungry and feels that he needs to be admitted for mental health reasons. He is feeling increasingly depressed. He is here voluntarily. Patient has been medically cleared and will be evaluated by mental health. ( Genoveva Arenas) 10:30 p.m. the patient has been calm. We are awaiting placement in a crisis stabilization unit. Care transferred to Dr. Angel Solomon shift change. ( Joseph Lopez) 0612AM: No acute events overnight. Patient waiting placement for CSU. Patient transferred over at 7:00 a.m. shift change to Dr. Key (Angel Solomon) Patient is started again on his regular antipsychotic said Respiratory all and Zyprexa 12:40 p.m. patient has been accepted at a crisis stabilization unit. Acceptance is pending. There is some concern apparently the patient had been arrested previously for arson and there is some concern about getting him back on his medication before transfer to crisis stabilization Patient has been evaluated and accepted at [facility]. (Molina Azevedo) Differential Diagnosis: Depression including functional and major depression, situational depression, medication side effect, drugs and alcohol abuse. (Genoveva Arenas) Schizophrenia, suicide ideation are considered. Drug intoxication and drug withdrawal or consider (Molina Azevedo) Other Provider: PHYSICIAN DOCUMENTATION: The patient was evaluated and managed by the Physician Uniform Designer and myself. I have reviewed the chart and agree with the findings and plan of care as documented. In addition, I examined the patient myself at 2208. History confirmed as schizoaffective disorder on discharge summary dated 02/18/2014. Physical findings as follows: Patient states he is hearing voices, reluctant to make eye contact, had to pulled the covers back from over his head to have a conversation with him. Signed out to Dr. Briseno at 2300 with psychiatric evaluation pending. I am the secondary supervising physician. (Robb Sheth) 0100 care assumed by me pending mental health evaluation. 0700 there been no issues during my care this patient overnight. He has been evaluated and is pending placement. Patient signed out to Dr. Azevedo. (Víctor Briseno) I assumed care of the patient at 7:00am pending psychiatric disposition. The patient remained stable on my shift. He will be turned over to Dr. Azevedo at shift change pending psychiatric disposition. (Marcial Key) Care Turn Over: Care will be turned over to Dr. Briseno for disposition and plan. (Genoveva Arenas ) - Data Points Laboratory Results: Laboratory Results 01/08/17 20:47 01/08/17 20:47 Medications Given: Nicotine Polacrilex (Nicorette) 2 mg B PRN PRN PRN Reason: Nicotine Withdrawal Stop: 07/08/17 08:04 Last Admin: 01/09/17 08:11 Dose: 2 mg Risperidone (Risperdal) 1 mg PO BID LA Stop: 07/08/17 12:28 Last Admin: 01/10/17 09:58 Dose: 1 mg Discontinued Medications Lorazepam (Ativan) 1 mg PO EDNOW ONE Stop: 01/09/17 10:22 Last Admin: 01/09/17 10:22 Dose: 1 mg Olanzapine (Zyprexa Zydis) 5 mg PO BID ONE Stop: 01/09/17 12:31 Last Admin: 01/09/17 12:56 Dose: 5 mg Departure - Departure Disposition: Other Psych, Not [place] Clinical Impression: Suicidal ideation Condition: Fair Instructions: Schizoaffective Disorder (ED) Additional Instructions: Return for further thoughts of suicide or hurting others. Referrals: NONE *PRIMARY CARE P,. [Primary Care Provider] - As per Instructions
[2017-01-09] MEDS ORDERED: NICOTINE POLACRILEX 2 MG GUM B PRN (08:05)
[2017-01-09] MEDS ORDERED: LORazepam 1 MG TAB ONE (10:18)
[2017-01-09] MEDS ORDERED: LORazepam 1 MG TAB PO ONE (10:21)
[2017-01-09] MEDS ORDERED: OLANZapine DISINTEGR 5 MG TAB PO ONE (12:30)
[2017-01-09] MEDS: risperiDONE 1 MG TAB PO SCH (12:56)
[2017-01-09 23:55] VITALS: RESP 16
[2017-01-10] MEDS: risperiDONE 1 MG TAB PO SCH ×2 (02:18→09:58)
[2017-01-10] MEDS ORDERED: TRANEXAMIC ACID 1,000 MG/10 ML VIAL ONE (04:56)
[2017-01-10 07:29] VITALS: TEMP 97.5
[2017-01-10 17:49] VITALS: BP 130/100; PULSE 94; O2SAT 94
== END 2017-01-10 19:53 ==
LOC: EDUNIT#
DX: R45.851 Suicidal ideations (principal); F17.200 Nicotine dependence, unspecified, uncomplicated
CPT/HCPCS: 80305; G0480

== ENCOUNTER 2017-01-23 12:24 | Emergency (ER) | payer MEDICAID ==
[2017-01-23 12:36] VITALS: BP 140/97; PULSE 81; RESP 16; TEMP 97.7; O2SAT 92
[2017-01-23 13:02] LABS: PLATELET COUNT 197 10^3/uL (150-400)
--- NOTE | 2017-01-23 13:10 | EDPHY ---
H & P Smoking Status: Heavy smoker Time Seen by Provider: 01/23/17 13:02 HPI/ROS: CHIEF COMPLAINT: I am hearing voices HISTORY OF PRESENT ILLNESS: Patient arrives with worsening auditory hallucinations. He describes a "running commentary "on his life but denies homicidal or suicidal ideation. He says it is affecting his daily life. REVIEW OF SYSTEMS: Eye: no change in vision ENT: no sore throat Cardiac: no chest pain or syncope Pulmonary: no cough or SOB Abdomen: no vomiting, diarrhea, abdominal pain Musculoskeletal: no back pain Skin: no rash Neuro: no headache Constitutional: no fever : no urinary symptoms A comprehensive 10 point review of systems is otherwise negative aside from elements mentioned in the history of present illness. PAST MEDICAL HISTORY: Schizoaffective disorder Social history: Tobacco smoker denies drugs or alcohol General Appearance: Alert and conversant, cooperative. Eyes: No scleral icterus. ENT, Mouth: Normal mucous membranes. Respiratory: Normal respiratory effort, breath sounds equal, lungs are clear to auscultation. Cardiovascular: Regular rate and rhythm. Gastrointestinal: Abdomen is soft and non tender. Neurological: Alert and oriented x3. Normally conversant. Face symmetric, normal movement and sensation in all extremities. Ambulatory without ataxic. Skin: No laceration or abrasions on extremities. Musculoskeletal: No peripheral edema and no joint swelling. Psychiatric: Patient is pacing in the room. He admits to auditory hallucinations. He denies overdose or attempt to harm himself today. Emergency Department course/MDM: Screening labs and psychiatric evaluation planned. 1349: The patient had a medical screening evaluation performed. There does not appear to be an acute emergent medical or surgical condition which would preclude psychiatric evaluation at this time. Mental health evaluation is requested at 1349. Signed out to Dr. Charles at 1500 with psychiatric evaluation pending. (Robb Sheth ) Constitutional: Initial Vital Signs Temperature (C) 36.5 C 01/23/17 12:29 Heart Rate 81 01/23/17 12:29 Respiratory Rate 16 01/23/17 12:29 Blood Pressure 140/97 H 01/23/17 12:29 O2 Sat (%) 92 01/23/17 12:29 O2 Delivery Mode Room Air Allergies/Adverse Reactions: No Known Allergies Allergy (Verified 01/07/17 01:39) Home Medications: Medication Instructions Recorded Lidocaine 5% [Lidoderm 5% Patch 1 ea TD BID #30 patch 01/07/17 (*)] Vistaril 01/07/17 INVEGA SUSTENNA 01/08/17 Medical Decision Making ED Course/Re-evaluation: This patient was seen by mental health. They feel that he is at his baseline mental health. The plan is for him to go to the [facility]. Denies suicidal or homicidal ideation. (Janna Charles) - Data Points Laboratory Results: Laboratory Results 01/23/17 12:55 01/23/17 12:55 01/23/17 01/23/17 01/23/17 13:10 12:55 12:55 WBC 7.61 10^3/uL 10^3/uL (3.80-9.50) RBC 4.96 10^6/uL 10^6/uL (4.40-6.38) Hgb 15.5 g/dL g/dL (13.7-17.5) Hct 44.3 % % (40.0-51.0) MCV 89.3 fL fL (81.5-99.8) MCH 31.3 pg pg (27.9-34.1) MCHC 35.0 g/dL g/dL (32.4-36.7) RDW 12.0 % % (11.5-15.2) Plt Count 197 10^3/uL 10^3/uL (150-400) MPV 9.8 fL fL (8.7-11.7) Neut % (Auto) 69.7 % % (39.3-74.2) Lymph % (Auto) 20.9 % % (15.0-45.0) Garfield % (Auto) 8.3 % % (4.5-13.0) Eos % (Auto) 0.4 % L % (0.6-7.6) Baso % (Auto) 0.3 % % (0.3-1.7) Nucleat RBC Rel Count 0.0 % % (0.0-0.2) Absolute Neuts (auto) 5.31 10^3/uL 10^3/uL (1.70-6.50) Absolute Lymphs (auto) 1.59 10^3/uL 10^3/uL (1.00-3.00) Absolute Monos (auto) 0.63 10^3/uL 10^3/uL (0.30-0.80) Absolute Eos (auto) 0.03 10^3/uL 10^3/uL (0.03-0.40) Absolute Basos (auto) 0.02 10^3/uL 10^3/uL (0.02-0.10) Absolute Nucleated RBC 0.00 10^3/uL 10^3/uL (0-0.01) Immature Gran % 0.4 % % (0.0-1.1) Immature Gran # 0.03 10^3/uL 10^3/uL (0.00-0.10) Sodium 144 mEq/L mEq/L (134-144) Potassium 4.2 mEq/L mEq/L (3.5-5.2) Chloride 109 mEq/L mEq/L (97-110) Carbon Dioxide 22 mEq/l mEq/l (22-31) Anion Gap 13 mEq/L mEq/L (8-16) BUN 17 mg/dL mg/dL (7-23) Creatinine 0.8 mg/dL mg/dL (0.7-1.3) Estimated GFR > 60 Glucose 107 mg/dL H mg/dL (70-100) Calcium 9.5 mg/dL mg/dL (8.5-10.4) Urine Opiates Screen NEGATIVE (NEGATIVE) Urine Barbiturates NEGATIVE (NEGATIVE) Ur Phencyclidine Scrn NEGATIVE (NEGATIVE) Ur Amphetamine Screen NEGATIVE (NEGATIVE) U Benzodiazepines Scrn NEGATIVE (NEGATIVE) Urine Cocaine Screen NEGATIVE (NEGATIVE) U Marijuana (THC) Screen NEGATIVE (NEGATIVE) Departure - Departure Disposition: Home, Routine, Self-Care Clinical Impression: Schizoaffective disorder Qualifiers: Schizoaffective disorder type: unspecified Qualified Code(s): F25.9 - Schizoaffective disorder, unspecified Condition: Good Instructions: Schizoaffective Disorder (ED) Additional Instructions: Go directly to the [facility]. Referrals: Sarita Hercules MD [Primary Care Provider] - As per Instructions
== END 2017-01-23 15:55 | disposition home or self-care (01) ==
LOC: EDUNIT#
DX: F25.9 Schizoaffective disorder, unspecified (principal); F17.200 Nicotine dependence, unspecified, uncomplicated
CPT/HCPCS: 80305

== ENCOUNTER 2017-12-30 10:58 | Emergency (ER) | payer OTHER ==
--- NOTE | 2017-12-30 10:51 | EDPHY ---
H & P Time Seen by Provider: 12/30/17 10:58 Allergies/Adverse Reactions: No Known Allergies Allergy (Verified 01/07/17 01:39) Home Medications: Medication Instructions Recorded Lidocaine 5% [Lidoderm 5% Patch 1 ea TD BID #30 patch 01/07/17 (*)] Vistaril 01/07/17 INVEGA SUSTENNA 01/08/17 Medical Decision Making ED Course/Re-evaluation: CHIEF COMPLAINT: Psychiatric evaluation HISTORY OF PRESENT ILLNESS: Patient just discharged from nursing home. Patient known schizophrenic. Patient is supposedly taking his medicines but he is a bit confused as to what to take. He also feels like he is hearing more voices than usual but that is been increasing slightly over a day or 2. He denies suicidality or homicidality. He is not gravely disabled. He denies any substance abuse or trauma. REVIEW OF SYSTEMS: A comprehensive 10 system review of systems is otherwise negative aside from elements mentioned in the history of present illness and medical decision making. PHYSICAL EXAM: General Appearance: Alert, well hydrated, appropriate, and non-toxic appearing. Head: Atraumatic without scalp tenderness or obvious injury Eyes: Pupils equal, round, reactive to light and accommodation, EOMI, no trauma , no injection. Ears: Clear bilaterally, no perforation, normal landmarks Nose: Atraumatic, no rhinorrhea, clear. Throat: There is no erythema or exudates, no lesions, normal tonsils, mucus membranes moist. Neck: Supple, nontender, no lymphadenopathy. Respiratory: No retractions, no distress, no wheezes, and no accessory muscle use. Lungs are clear to auscultation bilaterally. Cardiovascular: Regular rate and rhythm, no murmurs, rubs, or gallops. Good capillary refill all extremities. Gastrointestinal: Abdomen is soft, nontender, non-distended, no masses, no rebound, no guarding, no peritoneal signs. Musculoskeletal: Normal active ROM of all extremities, atraumatic. Neurological: Alert, appropriate, and interactive. The patient has non-focal cranial nerves, motor, sensory, and cerebellar exam. Skin: No rashes, good turgor, no nodules on palpation. Past medical history: Schizophrenia Past surgical history: Noncontributory Family history: Noncontributory Social history: Single, not employed, not , just released from nursing home DIFFERENTIAL DIAGNOSIS: The differential diagnosis for the patient's depression included but was not limited to functional and major depression, situational depression, medication side effect, drugs, and alcohol abuse. MEDICAL DECISION MAKING: Patient is in no acute distress and is hemodynamically stable. This is a 67 y/ o male with schizophrenia recently released from nursing home. He is requesting medication refills so he can restart his medications. He does not meet any criteria for M1 hold. Plan to discharge with scripts for Seroquel, lithium, clonazepam and referral to outpatient mental health services. He is comfortable with this plan. Return precautions discussed. Departure - Departure Disposition: Home, Routine, Self-Care Clinical Impression: Chronic psychosis, Medication refill Condition: Good Instructions: Psychotic Disorder (ED) Additional Instructions: Take medications as prescribed. Follow up with mental health clinic this week. Return for worsening of condition. Referrals: [facility],. [Clinic] - As per Instructions
[2017-12-30 12:30] VITALS: BP 138/78
--- NOTE | 2017-12-30 15:35 | ASMTCMCOM ---
CM Note CM Note Notes: Pt presented to the Emergency Department following a release from assisted. Pt c/o of "hearing voices." History includes schizoaffective disorder. Asked to see pt by SIMON Marlow. Pt reports being released from assisted on Monday (after a 50 day sentencing). Pt states he used to have an apartment in [place], but lost the apartment prior to going to assisted. Pt states "the voices in his head tell him to do things that have gotten him into a lot of trouble." SIMON Marlow placed a call to [facility] for assistance obtaining pt's psych medications. Per [facility], unable to fill Rx's this weekend, no prescribing MD available. Call placed to [facility] , no answer, no weekend hrs. Prescriptions obtained from Dr. Montes. Prescriptions called to [facility] in the [facility] at [address] [place] [id number], . Spoke with Ebony Pharmacist. [place] Carbonate ([place] Carbonate ) 150 mg capsule 150 mg ORAL Twice Daily Dispense # 4 Capsule No refills QUEtiapine FUMARATE (Seroquel 100 mg) 100 mg Tab 100 MG ORAL Twice Daily Dispense # 4 No Refills clonazePAM (Clonazepam) 0.5 mg Tablet 0.5 mg ORAL Twice Daily Dispense # 4 Tablets No Refills Per Ebony, nick to run pt's medications through Medicaid - Medicaid denied secondary to Medicare coverage. Pt has Medicare Part D. Medications processed through pt's Medicare plan - copay $0.08/medication, for a total of $0.24. Update provided to pt. Pt agreeable to picking up medications at [facility] after 1:00 pm. Pt provided with $0.25, a bus pass, [facility] [place]'s address and phone number. SIMON Marlow provided pt with follow up instructions, [facility] resources and crisis intervention information. Pt verbalized understanding. Call placed to Ebony at [facility], requested pharmacy prepare prescriptions for pt pickup. CM available for any further issues or concerns. Date Signed: 12/30/2017 03:34 PM Electronically Signed By:Pily Jimenez RN
== END 2017-12-30 12:30 | disposition home or self-care (01) ==
LOC: EDUNIT#
DX: F29 Unspecified psychosis not due to a substance or known physiological condition (principal); Z76.0 Encounter for issue of repeat prescription

== ENCOUNTER 2018-01-03 00:46 | Emergency (ER) | payer OTHER, MEDICAID ==
[2018-01-03 00:54] VITALS: BP 152/112
[2018-01-03] MEDS ORDERED: ACETAMINOPHEN 500 MG TAB ONE (01:56)
[2018-01-03] MEDS ORDERED: LIDOCAINE 4%/MENTHOL 1% PATCH TD ONE ×2 (01:56→02:03)
[2018-01-03] MEDS ORDERED: IBUPROFEN 800 MG TAB PO ONE ×2 (01:56→01:59)
--- NOTE | 2018-01-03 01:57 | EDPHY ---
H & P Stated Complaint: fall, l low back pain Time Seen by Provider: 01/03/18 01:02 HPI/ROS: HPI The patient presents with left-sided low back pain which has been present for several years though became worse tonight after he had a fall from standing witnessed by bystanders in a grocery store parking lot. They helped him stand up and he continued to complain of back pain, thus 911 was called. Paramedics have brought the patient to the emergency department. He says his back pain feels usual to him, achy and on the left side. He says he was recently incarcerated and there he was given ibuprofen and Tylenol which helped his back pain significantly. Since he has been out of longterm, he has not had this medication any feels this is what is making his pain worse. He denies any numbness or tingling of his legs. He does not have any weakness of his legs or bowel or bladder changes.. REVIEW OF SYSTEMS 10 systems were reviewed and negative with the exception of the elements mentioned in the history of present illness. PMHx: Hypertension, hyperlipidemia, bipolar disorders, schizoaffective disorder Soc Hx: Homeless, no IV drug use PHYSICAL General Appearance: Alert, no distress Eyes: Pupils equal and round no pallor or injection ENT, Mouth: Mucous membranes moist Respiratory: There are no retractions, lungs are clear to auscultation Cardiovascular: Regular rate and rhythm Gastrointestinal: Abdomen is soft and non-tender, no masses, bowel sounds normal Back: There is tenderness of the left paraspinal muscle group at approximately L3 through L5, there is limited flexion and extension of his back secondary to pain, he is able to walk with a normal gait Neurological: A&O, 5/5 strength in lower extremities, sensation intact to light touch Skin: Warm and dry, no rashes Musculoskeletal: Neck is supple non tender Extremities: symmetrical, full range of motion Psychiatric: Patient is oriented X 3, there is no agitation Source: Patient Exam Limitations: No limitations - Personal History Current Tetanus Diphtheria and Acellular Pertussis (TDAP): Unsure Tetanus Vaccine Date: 2006 - Medical/Surgical History Hx Asthma: No Hx Chronic Respiratory Disease: No Hx Diabetes: No Hx Cardiac Disease: No Hx Renal Disease: No Hx Cirrhosis: No Hx Alcoholism: Yes Hx HIV/AIDS: No Hx Splenectomy or Spleen Trauma: No Other PMH: PMHx: HTN, Hyperlipidemia, bipolar, schizoaffective - Social History Smoking Status: Heavy smoker Constitutional: Initial Vital Signs Temperature (C) 37.3 C 01/03/18 00:50 Heart Rate 100 01/03/18 00:50 Respiratory Rate 18 01/03/18 00:50 Blood Pressure 152/112 H 01/03/18 00:50 O2 Sat (%) 94 01/03/18 00:50 O2 Delivery Mode Room Air Allergies/Adverse Reactions: No Known Allergies Allergy (Verified 01/07/17 01:39) Home Medications: Medication Instructions Recorded [place] Carbonate 150 mg PO BID #4 capsule 12/30/17 QUEtiapine FUMARATE [Seroquel 100 100 mg PO BID #4 tab 12/30/17 mg (*)] clonazePAM [Clonazepam] 0.5 mg PO BID #4 tablet 12/30/17 Medical Decision Making Differential Diagnosis: 67-year-old male who is homeless presents with chronic low back pain, exacerbated after a fall earlier tonight. Here, he has no red flag features for his back pain. He actually looks quite well and has walked to the bathroom several times since he has been here. We will give him a lidocaine patch and ibuprofen per his request. He will be discharged from the emergency department. I have considered cauda equina, epidural abscess, however I feel these are much less likely given no fever or neurologic deficits. - Data Points Medications Given: Discontinued Medications Acetaminophen (Tylenol) 1,000 mg PO EDNOW ONE Stop: 01/03/18 02:00 Last Admin: 01/03/18 02:01 Dose: 1,000 mg Ibuprofen (Motrin) 800 mg PO EDNOW ONE Stop: 01/03/18 02:00 Last Admin: 01/03/18 02:00 Dose: 800 mg Miscellaneous Medication (Icy Hot Lidocaine/Menthol 4%/1% Patch) 1 patch TD EDNOW ONE Stop: 01/03/18 02:04 Last Admin: 01/03/18 02:04 Dose: 1 patch Departure - Departure Disposition: Home, Routine, Self-Care Clinical Impression: Paranoid schizophrenia Lower back pain Qualifiers: Chronicity: acute Back pain laterality: left Sciatica presence: without sciatica Qualified Code(s): M54.5 - Low back pain Schizophrenia Qualifiers: Schizophrenia type: unspecified Qualified Code(s): F20.9 - Schizophrenia, unspecified Condition: Good Instructions: Low Back Strain (ED) Referrals: [facility],. [Clinic] - As per Instructions
[2018-01-03] MEDS ORDERED: ACETAMINOPHEN 500 MG TAB PO ONE (01:59)
[2018-01-03] MEDS ORDERED: PATCH REMOVAL 1 EA PATCH TD SCH (21:00)
== END 2018-01-03 02:04 | disposition home or self-care (01) ==
LOC: EDBD → EDUNIT#
DX: M54.5 Low back pain (principal); F20.9 Schizophrenia, unspecified; I10 Essential (primary) hypertension; E78.5 Hyperlipidemia, unspecified; W19.XXXA Unspecified fall, initial encounter; Y92.481 Parking lot as the place of occurrence of the external cause; F17.200 Nicotine dependence, unspecified, uncomplicated; Z59.0 Homelessness

== ENCOUNTER 2018-01-03 11:18 | Emergency (ER) | payer MEDICAID ==
[~2018-01-03 11:18] MED LIST: LIDOCAINE 4%/MENTHOL 1% PATCH TD SCH
[2018-01-03] MEDS ORDERED: IBUPROFEN 800 MG TAB PO ONE (11:22)
[2018-01-03] MEDS ORDERED: LIDOCAINE 4%/MENTHOL 1% PATCH TD ONE (11:23)
[2018-01-03 11:26] VITALS: BP 130/89
--- NOTE | 2018-01-03 11:30 | EDPHY ---
H & P Stated Complaint: Chronic low back pain, Lidocaine patch yesterday, no money for more lidocai Time Seen by Provider: 01/03/18 11:19 HPI/ROS: CHIEF COMPLAINT: Low back pain HISTORY OF PRESENT ILLNESS: Patient is a 67-year-old homeless schizoaffective man with a history of chronic low back pain. He was seen here yesterday after a minor fall and complained of low back pain. He was treated with ibuprofen and lidocaine patch. He felt much better and was ambulating around the department. He states that he did not have money to fill his prescription and so his pain is now returned. No weakness or numbness. He is ambulating. No bowel or bladder abnormalities. He is requesting to stay in the hospital for pain control. Severity: Moderate Modifying factors: Improves with lidocaine patch REVIEW OF SYSTEMS: Constitutional: denies: chills, fever, recent illness, recent injury EENTM: denies: blurred vision, double vision, nose congestion Respiratory: denies: cough, shortness of breath Cardiac: denies: chest pain, irregular heart rate, lightheadedness, palpitations Gastrointestinal/Abdominal: denies: abdominal pain, diarrhea, nausea, vomiting, blood streaked stools Genitourinary: denies: dysuria, frequency, hematuria, pain Musculoskeletal: See HPI Skin: denies: lesions, rash, jaundice, bruising Neurological: denies: headache, numbness, paresthesia, tingling, dizziness, weakness Hematologic/Lymphatic: denies: blood clots, easy bleeding, easy bruising Immunologic/allergic: denies: HIV/AIDS, transplant 10 systems reviewed and negative except as noted EXAM: GENERAL: Well-appearing, well-nourished and in no acute distress. HEAD: Atraumatic, normocephalic. EYES: Pupils equal round and reactive to light, extraocular movements intact, sclera anicteric, conjunctiva are normal. ENT: TMs normal, nares patent, oropharynx clear without exudates. Moist mucous membranes. NECK: Normal range of motion, supple without lymphadenopathy or JVD. LUNGS: Breath sounds clear to auscultation bilaterally and equal. No wheezes rales or rhonchi. HEART: Regular rate and rhythm without murmurs, rubs or gallops. ABDOMEN: Soft, nontender, normoactive bowel sounds. No guarding, no rebound. No masses appreciated. BACK: Low back pain, no step-offs or deformities. No radiculopathy EXTREMITIES: Normal range of motion, no pitting or edema. No clubbing or cyanosis. NEUROLOGICAL: Cranial nerves II through XII grossly intact. Normal speech, normal gait with pain. 5/5 strength, normal movement in all extremities, normal sensation, normal reflexes PSYCH: Normal mood, normal affect. SKIN: Warm, dry, normal turgor, no visible rashes or lesions. Source: Patient Exam Limitations: No limitations - Personal History Tetanus Vaccine Date: 2006 - Medical/Surgical History Hx Asthma: No Hx Chronic Respiratory Disease: No Hx Diabetes: No Hx Cardiac Disease: No Hx Renal Disease: No Hx Cirrhosis: No Hx Alcoholism: Yes Hx HIV/AIDS: No Hx Splenectomy or Spleen Trauma: No Other PMH: PMHx: HTN, Hyperlipidemia, bipolar, schizoaffective - Family History Significant Family History: No pertinent family hx - Social History Smoking Status: Heavy smoker Alcohol Use: Heavy Drug Use: Marijuana Constitutional: Initial Vital Signs Temperature (C) 36.7 C 01/03/18 11:18 Heart Rate 104 H 01/03/18 11:18 Respiratory Rate 18 01/03/18 11:18 Blood Pressure 130/89 H 01/03/18 11:18 O2 Sat (%) 94 01/03/18 11:18 O2 Delivery Mode Room Air Allergies/Adverse Reactions: No Known Allergies Allergy (Verified 01/07/17 01:39) Home Medications: Medication Instructions Recorded [place] Carbonate 150 mg PO BID #4 capsule 12/30/17 QUEtiapine FUMARATE [Seroquel 100 100 mg PO BID #4 tab 12/30/17 mg (*)] clonazePAM [Clonazepam] 0.5 mg PO BID #4 tablet 12/30/17 Lidocaine [Lidoderm] 1 each TP DAILY PRN 5 Days 01/03/18 adh..patch Medical Decision Making ED Course/Re-evaluation: Patient does not have any objective findings consistent with spinal cord injury. No bowel or bladder abnormalities. No weakness. No numbness. He is ambulating without difficulty. I will re-dose him with lidocaine patch and ibuprofen and write him a new prescription and feel it here. He understands this plan. He is somewhat disappointed about not staying in the hospital but I suspect that there is some component of malingering because of the poor weather. Differential Diagnosis: Partial list of the Differential diagnosis considered include but were not limited to; chronic low back pain, radiculopathy and although unlikely based on the history and physical exam, I also considered fracture, spinal cord injury , infection, hematoma. - Data Points Medications Given: Discontinued Medications Ibuprofen (Motrin) 800 mg PO EDNOW ONE Stop: 01/03/18 11:23 Last Admin: 01/03/18 11:42 Dose: 800 mg Miscellaneous Medication (Icy Hot Lidocaine/Menthol 4%/1% Patch) 1 patch TD EDNOW ONE Stop: 01/03/18 11:24 Last Admin: 01/03/18 11:42 Dose: 1 patch Departure - Departure Disposition: Home, Routine, Self-Care Clinical Impression: Schizophrenia Qualifiers: Schizophrenia type: unspecified Qualified Code(s): F20.9 - Schizophrenia, unspecified Lower back pain Qualifiers: Back pain laterality: midline Sciatica presence: without sciatica Condition: Fair Instructions: Lidocaine Patch (On the skin), Chronic Back Pain (ED) Referrals: Patient,NotPresent [Primary Care Provider] - As per Instructions Prescriptions: Lidocaine [Lidoderm] 1 each TP DAILY PRN 5 Days adh..patch PRN Reason: Pain, Severe
--- NOTE | 2018-01-03 12:32 | ASMTCMCOM ---
CM Note CM Note Notes: Patient presents to the ER X2 within the past 24 hours with "back pain". Please also see CM note from 12/30/17 for details regarding visit for Mental health related issues. Patient is a homeless gentleman who states hiwot he does stay at [facility]. He states that he did fill the prescriptions for medications that were prescribed at the ER on 12/30/17. At this time patient does not/will not answer me regading his PCP or follow up providers. I have contacted Krissy at [facility]. She confirms that patient was at the clinic Monday, 01/01 for an appointment with Marcia Hercules. Patient also has an appointment scheduled with Dr. Carmona (psychiatrist) tomorrow 01/04/18. I have reminded patient of this appointment. Patient requests a bus pass to get back to the skilled nursing and tells me that he is planning to stay there tonight. In addition to this bus pass, I have MAPPED ($7.50) a prescription for 4%/1% lidoderm/menthol patches for his back pain and asked him to follow up with Dr. Hercules for further prescription/pain needs. I have faxed a copy of patient's recent ER visit reports and CM notes to [facility]; attention Dr Hercules and Dr. Carmona Date Signed: 01/03/2018 12:31 PM Electronically Signed By:Daria Licona RN
[2018-01-03] MEDS ORDERED: PATCH REMOVAL 1 EA PATCH TD SCH (21:00)
== END 2018-01-03 12:08 | disposition home or self-care (01) ==
LOC: EDUNIT#
DX: M54.5 Low back pain (principal); G89.29 Other chronic pain; F25.0 Schizoaffective disorder, bipolar type; I10 Essential (primary) hypertension; E78.5 Hyperlipidemia, unspecified; Z72.0 Tobacco use; Z59.0 Homelessness

== ENCOUNTER 2018-01-05 11:49 | Inpatient (IN) | payer OTHER, MEDICAID ==
[2018-01-05 12:36] LABS: PLATELET COUNT 205 10^3/uL (150-400)
[2018-01-05] MEDS ORDERED: IBUPROFEN 600 MG TAB PO ONE (13:20)
[2018-01-05] MEDS ORDERED: ACETAMINOPHEN 500 MG TAB PO ONE (13:20)
[2018-01-05] MEDS ORDERED: LIDOCAINE 4%/MENTHOL 1% PATCH TD ONE (13:20)
--- NOTE | 2018-01-05 14:28 | EDPHY ---
H & P Time Seen by Provider: 01/05/18 11:54 HPI/ROS: CHIEF COMPLAINT: Medical clearance for inpatient psychiatric treatment HISTORY OF PRESENT ILLNESS: Patient is a 67-year-old male sent here from [facility] for medical clearance for inpatient psychiatric treatment. He was seen today mL [facility] and found to have disorganized thinking and has been unable to follow his outpatient medical regimen. He is voluntary agreeable with inpatient psychiatric treatment. His only complaint today is chronic back pain. He is requesting Tylenol Motrin and a lidocaine patch. REVIEW OF SYSTEMS: Constitutional: No fever, no chills. Eyes: No discharge. ENT: No sore throat. Cardiovascular: No chest pain, no palpitations. Respiratory: No cough, no shortness of breath. Gastrointestinal: No abdominal pain, no vomiting. Genitourinary: No hematuria. Musculoskeletal: + back pain. Skin: No rashes. Neurological: No headache. Smoking Status: Heavy smoker Physical Exam: General Appearance: Alert and no distress. Eyes: Pupils equal and round no injection. Respiratory: Chest is nontender, lungs are clear to auscultation. Cardiac: regular rate and rhythm. Gastrointestinal: Abdomen is soft and nontender, no masses, bowel sounds normal. Musculoskeletal: Neck is supple and nontender. Extremities have full range of motion and are nontender. Skin: No rashes or lesions. Constitutional: Initial Vital Signs Temperature (C) 36.7 C 01/05/18 11:49 Heart Rate 88 01/05/18 11:49 Respiratory Rate 16 01/05/18 11:49 Blood Pressure 118/84 H 01/05/18 11:49 O2 Sat (%) 95 01/05/18 11:49 O2 Delivery Mode Room Air Allergies/Adverse Reactions: No Known Allergies Allergy (Verified 01/07/17 01:39) Home Medications: Medication Instructions Recorded [place] Carbonate 150 mg PO BID #4 capsule 12/30/17 QUEtiapine FUMARATE [Seroquel 100 100 mg PO BID #4 tab 12/30/17 mg (*)] clonazePAM [Clonazepam] 0.5 mg PO BID #4 tablet 12/30/17 Lidocaine [Lidoderm] 1 each TP DAILY PRN 5 Days 01/03/18 adh..patch Medical Decision Making ED Course/Re-evaluation: Well known schizoaffective 67-year-old male sent here from [facility] for medical clearance for inpatient psychiatric treatment. His labs and UA are unremarkable. He is alert and oriented with no signs of sepsis, trauma, electrolyte disturbance, acute anemia. He was given lidocaine patch, Motrin and Tylenol for his chronic low back pain. Is cleared for inpatient psychiatric treatment. Patient was accepted for admission to [facility] with Dr. Dilip mabry at 5:17 p.m Today 01/05/18. - Data Points Laboratory Results: Laboratory Results 01/05/18 12:10 01/05/18 12:10 01/05/18 01/05/18 01/05/18 12:30 12:10 12:10 WBC 6.61 10^3/uL 10^3/uL (3.80-9.50) RBC 4.60 10^6/uL 10^6/uL (4.40-6.38) Hgb 14.0 g/dL g/dL (13.7-17.5) Hct 41.8 % % (40.0-51.0) MCV 90.9 fL fL (81.5-99.8) MCH 30.4 pg pg (27.9-34.1) MCHC 33.5 g/dL g/dL (32.4-36.7) RDW 14.2 % % (11.5-15.2) Plt Count 205 10^3/uL 10^3/uL (150-400) MPV 9.8 fL fL (8.7-11.7) Neut % (Auto) 58.9 % % (39.3-74.2) Lymph % (Auto) 27.2 % % (15.0-45.0) [place] % (Auto) 11.5 % % (4.5-13.0) Eos % (Auto) 1.7 % % (0.6-7.6) Baso % (Auto) 0.5 % % (0.3-1.7) Nucleat RBC Rel Count 0.0 % % (0.0-0.2) Absolute Neuts (auto) 3.90 10^3/uL 10^3/uL (1.70-6.50) Absolute Lymphs (auto) 1.80 10^3/uL 10^3/uL (1.00-3.00) Absolute Monos (auto) 0.76 10^3/uL 10^3/uL (0.30-0.80) Absolute Eos (auto) 0.11 10^3/uL 10^3/uL (0.03-0.40) Absolute Basos (auto) 0.03 10^3/uL 10^3/uL (0.02-0.10) Absolute Nucleated RBC 0.00 10^3/uL 10^3/uL (0-0.01) Immature Gran % 0.2 % % (0.0-1.1) Immature Gran # 0.01 10^3/uL 10^3/uL (0.00-0.10) Sodium 141 mEq/L mEq/L (135-145) Potassium 3.7 mEq/L mEq/L (3.3-5.0) Chloride 108 mEq/L mEq/L (97-110) Carbon Dioxide 25 mEq/l mEq/l (22-31) Anion Gap 8 mEq/L mEq/L (6-14) BUN 16 mg/dL mg/dL (7-23) Creatinine 0.6 mg/dL L mg/dL (0.7-1.3) Estimated GFR > 60 Glucose 115 mg/dL H mg/dL (70-100) Calcium 9.3 mg/dL mg/dL (8.5-10.4) Urine Color YELLOW Urine Appearance CLEAR Urine pH 6.0 (5.0-7.5) Ur Specific [place] 1.016 (1.002-1.030) Urine Protein NEGATIVE (NEGATIVE) Urine Ketones NEGATIVE (NEGATIVE) Urine Blood NEGATIVE (NEGATIVE) Urine Nitrate NEGATIVE (NEGATIVE) Urine Bilirubin NEGATIVE (NEGATIVE) Urine Urobilinogen 4.0 EU H EU (0.2-1.0) Ur Leukocyte Esterase NEGATIVE (NEGATIVE) Urine Glucose NEGATIVE (NEGATIVE) Salicylates < 1.0 mg/dL L mg/dL (2.0-20.0) Urine Opiates Screen NEGATIVE (NEGATIVE) Acetaminophen < 10 mcg/mL L mcg/mL (10-30) Urine Barbiturates NEGATIVE (NEGATIVE) Ur Phencyclidine Scrn NEGATIVE (NEGATIVE) Ur Amphetamine Screen NEGATIVE (NEGATIVE) U Benzodiazepines Scrn NEGATIVE (NEGATIVE) Urine Cocaine Screen NEGATIVE (NEGATIVE) U Marijuana (THC) Screen NEGATIVE (NEGATIVE) Ethyl Alcohol < 10 mg/dL mg/dL (0-10) Medications Given: Discontinued Medications Acetaminophen (Tylenol) 1,000 mg PO EDNOW ONE Stop: 10/12/18 13:21 Last Admin: 01/05/18 14:06 Dose: 1,000 mg Ibuprofen (Motrin) 600 mg PO EDNOW ONE Stop: 01/05/18 13:21 Last Admin: 01/05/18 14:06 Dose: 600 mg Miscellaneous Medication (Icy Hot Lidocaine/Menthol 4%/1% Patch) 1 patch TD EDNOW ONE Stop: 01/05/18 13:21 Last Admin: 01/05/18 14:07 Dose: 1 patch Departure - Departure Disposition: Home, Routine, Self-Care Clinical Impression: Psychosis, Chronic back pain Condition: Fair Referrals: NONE *PRIMARY CARE P,. [Primary Care Provider] - As per Instructions
[2018-01-05] MEDS ORDERED: LORazepam 1 MG TAB PO PRN (20:05)
[2018-01-05] MEDS ORDERED: LORazepam 2 MG/ML INJ IVP PRN (20:05)
[2018-01-05] MEDS ORDERED: PATCH REMOVAL 1 EA PATCH TD SCH (21:00)
[2018-01-05] MEDS ORDERED: NICOTINE POLACRILEX 2 MG GUM B PRN (21:37)
[2018-01-05] MEDS ORDERED: MAGNESIUM HYDROXIDE 30 ML UDCUP PO PRN (21:37)
[2018-01-05] MEDS ORDERED: MAG HYDROX/AL HYDROX/SIMETH 30 ML UDCUP PO PRN (21:37)
[2018-01-05] MEDS: QUEtiapine FUMARATE 100 MG TAB PO SCH (22:16)
[2018-01-05] MEDS: LITHIUM CARBONATE ER 300 MG TAB PO SCH (22:16)
[2018-01-05] MEDS: ACETAMINOPHEN 325 MG TAB PO PRN (22:18)
[2018-01-05] MEDS: LORazepam 0.5 MG TAB PO PRN (22:18)
--- NOTE | 2018-01-05 23:34 | PDHOSCONS ---
History and Physical - Chief Complaint Sent by [facility] to the ER to assess for safety for behavior - History of Present Illness This patient with a long history of schizoaffective disorder bipolar comes in to be assessed for behavioral health admission. He is under long-term care by [facility] and they found that he was not able to manage his medications or his illness at home recently. The patient's main complaint to me is chronic back pain which is a musculoskeletal pain without radicular symptoms and without any motor bowel or bladder dysfunction. He has used Lidoderm patches for this in the past but finds there difficult to afford. His other main complaint is that he has been unable to find a apartment that he can stay in where he is allowed to smoke. He does admit that he is having some auditory hallucinations but says that they are not as loud or bothersome recently as they sometimes are. He otherwise feels like he is doing well overall. It was hard for me to tell with he is actually drinking any alcohol lately but I know that he has had alcohol use in the past and he talks a lot about alcohol during my visit with him. History Information - Allergies/Home Medication List Allergies/Adverse Reactions: No Known Allergies Allergy (Verified 01/07/17 01:39) Home Medications: [place] Carbonate ER [Eskalith Cr 450 mg (*)] 450 mg PO DAILY 01/05/18 [Last Taken Unknown] QUEtiapine FUMARATE [Seroquel 300mg (*)] 300 mg PO HS 01/05/18 [Last Taken Unknown] clonazePAM [klonoPIN (*)] 1 mg PO BID PRN 01/05/18 [Last Taken Unknown] I have personally reviewed and updated: family history, medical history, social history, surgical history Past Medical History: As described in history above, no other significant medical issues - Surgical History Reports: no pertinent surgical hx - Family History Positive for: non-pertinent - Social History Smoking Status: Heavy smoker Alcohol Use: Other (Difficult to ascertain current alcohol use but has long been heavy drinker) Review of Systems Review of Systems: ROS: 10pt was reviewed & negative except for what was stated in HPI & below Physical Exam Physical Exam: Temp Pulse Resp BP Pulse Ox 36.9 C 86 14 122/64 H 94 01/05/18 22:08 01/05/18 22:08 01/05/18 22:08 01/05/18 22:08 01/05/18 22:08 Constitutional: no apparent distress, appears nourished, not in pain, other ( Speech time a bit pressured) Eyes: PERRL, anicteric sclera Ears, Nose, Mouth, Throat: moist mucous membranes, hearing normal, ears appear normal, no oral mucosal ulcers Cardiovascular: regular rate and rhythym, no murmur, rub, or gallop, No edema Respiratory: no respiratory distress, no rales or rhonchi, clear to auscultation Gastrointestinal: normoactive bowel sounds, soft, non-tender abdomen, no palpable masses, No distension Skin: warm, normal color, no rashes or abrasions Musculoskeletal: no joint effusions Neurologic: AAOx3, No weakness Psychiatric: interacting appropriately, not encephalopathic, agitated (Very mildly) Lab Data & Imaging Review 01/05/18 12:10 01/05/18 12:10 WBC 6.61 10^3/uL (3.80-9.50) 01/05/18 12:10 RBC 4.60 10^6/uL (4.40-6.38) 01/05/18 12:10 Hgb 14.0 g/dL (13.7-17.5) 01/05/18 12:10 Hct 41.8 % (40.0-51.0) 01/05/18 12:10 MCV 90.9 fL (81.5-99.8) 01/05/18 12:10 MCH 30.4 pg (27.9-34.1) 01/05/18 12:10 MCHC 33.5 g/dL (32.4-36.7) 01/05/18 12:10 RDW 14.2 % (11.5-15.2) 01/05/18 12:10 Plt Count 205 10^3/uL (150-400) 01/05/18 12:10 MPV 9.8 fL (8.7-11.7) 01/05/18 12:10 Neut % (Auto) 58.9 % (39.3-74.2) 01/05/18 12:10 Lymph % (Auto) 27.2 % (15.0-45.0) 01/05/18 12:10 Andrews % (Auto) 11.5 % (4.5-13.0) 01/05/18 12:10 Eos % (Auto) 1.7 % (0.6-7.6) 01/05/18 12:10 Baso % (Auto) 0.5 % (0.3-1.7) 01/05/18 12:10 Nucleat RBC Rel Count 0.0 % (0.0-0.2) 01/05/18 12:10 Absolute Neuts (auto) 3.90 10^3/uL (1.70-6.50) 01/05/18 12:10 Absolute Lymphs (auto) 1.80 10^3/uL (1.00-3.00) 01/05/18 12:10 Absolute Monos (auto) 0.76 10^3/uL (0.30-0.80) 01/05/18 12:10 Absolute Eos (auto) 0.11 10^3/uL (0.03-0.40) 01/05/18 12:10 Absolute Basos (auto) 0.03 10^3/uL (0.02-0.10) 01/05/18 12:10 Absolute Nucleated RBC 0.00 10^3/uL (0-0.01) 01/05/18 12:10 Immature Gran % 0.2 % (0.0-1.1) 01/05/18 12:10 Immature Gran # 0.01 10^3/uL (0.00-0.10) 01/05/18 12:10 Sodium 141 mEq/L (135-145) 01/05/18 12:10 Potassium 3.7 mEq/L (3.3-5.0) 01/05/18 12:10 Chloride 108 mEq/L (97-110) 01/05/18 12:10 Carbon Dioxide 25 mEq/l (22-31) 01/05/18 12:10 Anion Gap 8 mEq/L (6-14) 01/05/18 12:10 BUN 16 mg/dL (7-23) 01/05/18 12:10 Creatinine 0.6 mg/dL (0.7-1.3) L 01/05/18 12:10 Estimated GFR > 60 01/05/18 12:10 Glucose 115 mg/dL (70-100) H 01/05/18 12:10 Calcium 9.3 mg/dL (8.5-10.4) 01/05/18 12:10 Urine Color YELLOW 01/05/18 12:30 Urine Appearance CLEAR 01/05/18 12:30 Urine pH 6.0 (5.0-7.5) 01/05/18 12:30 Ur Specific [place] 1.016 (1.002-1.030) 01/05/18 12:30 Urine Protein NEGATIVE (NEGATIVE) 01/05/18 12:30 Urine Ketones NEGATIVE (NEGATIVE) 01/05/18 12:30 Urine Blood NEGATIVE (NEGATIVE) 01/05/18 12:30 Urine Nitrate NEGATIVE (NEGATIVE) 01/05/18 12:30 Urine Bilirubin NEGATIVE (NEGATIVE) 01/05/18 12:30 Urine Urobilinogen 4.0 EU (0.2-1.0) H 01/05/18 12:30 Ur Leukocyte Esterase NEGATIVE (NEGATIVE) 01/05/18 12:30 Urine Glucose NEGATIVE (NEGATIVE) 01/05/18 12:30 Salicylates < 1.0 mg/dL (2.0-20.0) L 01/05/18 12:10 Urine Opiates Screen NEGATIVE (NEGATIVE) 01/05/18 12:30 Acetaminophen < 10 mcg/mL (10-30) L 01/05/18 12:10 Urine Barbiturates NEGATIVE (NEGATIVE) 01/05/18 12:30 Ur Phencyclidine Scrn NEGATIVE (NEGATIVE) 01/05/18 12:30 Ur Amphetamine Screen NEGATIVE (NEGATIVE) 01/05/18 12:30 U Benzodiazepines Scrn NEGATIVE (NEGATIVE) 01/05/18 12:30 [place] 0.3 mEq/L (0.6-1.2) L 01/05/18 20:23 Urine Cocaine Screen NEGATIVE (NEGATIVE) 01/05/18 12:30 U Marijuana (THC) Screen NEGATIVE (NEGATIVE) 01/05/18 12:30 Ethyl Alcohol < 10 mg/dL (0-10) 01/05/18 12:10 Assessment & Plan Assessment: In addition to the labs listed above the patient has a low lithium level, a negative urine drug screen, negative Tylenol level Chronic back pain without radicular symptoms Psychosis (Acute on chronic) Tobacco and alcohol abuse Plan: At this time other than symptomatic therapy for his back including heating pad Tylenol or ibuprofen have no specific recommendations for medical issues We remain available for further consultation as necessary during his hospital stay
[2018-01-06] MEDS: ACETAMINOPHEN 325 MG TAB PO PRN (04:44)
[2018-01-06] MEDS: IBUPROFEN 600 MG TAB PO PRN (04:45)
[2018-01-06] MEDS: LORazepam 0.5 MG TAB PO PRN (05:02)
[2018-01-06] MEDS: THIAMINE HCL 100 MG TAB PO SCH (08:23)
[2018-01-06] MEDS: LITHIUM CARBONATE ER 300 MG TAB PO SCH ×2 (08:23→20:36)
--- NOTE | 2018-01-06 10:51 | ASMTBHMTP ---
Master Treatment Plan Master Treatment Plan Answers: Mood Instability with for: Psychosis Date: 01/06/2018 Diagnosis on Admission: Schizoaffective Disorder, Bipolar Type Expected length of stay: 3-5 Days Reason for admission: Notes: Per ED Report - Pt. is a 67 year old male, with a long history of schizoaffective disorder bipolar comes in to be assess for behavioral health admission. He is under long-term care by [facility] and they found that he was not able to manage his medications or his illness at home recently. Patient's stated presenting problems: Notes: Mental illness and physical disability. Pt. stated he has chronic back pain and has recently been hearing command hallucinations. Patient's goals for treatment: Notes: Talk to doctor and know what I can do to keep these voices away Patient's strengths: Notes: Likes to read Identify supports outside of hospital: Notes: Brother and [id number] Discharge criteria: Notes: Patient will demonstrate more stable mood by discharge. Initial disposition plan/considerations: Notes: Pt. is currently homeless Master Treatment Plan Required Signatures Psychiatrist signature: Answers: Rush Camejo MD: RN on-shift signature: Answers: RN: Patient signature: Answers: Patient: Date Signed: 01/06/2018 10:51 AM Electronically Signed By:Gloria Rodriguez
--- NOTE | 2018-01-06 15:54 | ASMTCMCOM ---
CM Note CM Note Notes: Pt and CC completed MTP, signed and placed in chart. Pt. asked to be called "Carlos". Pt. stated he has command auditory hallucinations that "have gotten me into trouble". Pt. stated he has been convicted of arson four times. Pt. stated he was recently evicted from his place in [place] and lost all of his important documents including his ID. Pt. stated he is able to call his brother for help with some money. Pt. stated he has a psychiatrist but not a therapist. Pt. stated he does have current legal issues but is unsure when he has court next. Pt. stated he works with Feliciano Harden and [place] at [facility]. Pt. stated he drinks alcohol "moderatly" adding his last drink was 1-2 weeks ago. Pt. reports smoking THC three days ago. Pt. stated he does not want to quit smoking cigarettes and drinking alcohol. Pt. stated he wants an apartment he can smoke in. Pt. stated he doesn't want to take Zyprexa, stating he gained 50lbs while on it in the past. Pt. presents as alert, disorganized, staring eye contact, friendly, and lacking insight into current issues. Staff report pt. sleeping 3.5 hours and needing redirection to be clothed. Date Signed: 01/06/2018 03:54 PM Electronically Signed By:Gloria Rodriguez
[2018-01-06] MEDS ORDERED: MELATONIN 3 MG TAB PO PRN (16:56)
[2018-01-06] MEDS ORDERED: hydrOXYzine HCL 25 MG TAB PO PRN (16:56)
--- NOTE | 2018-01-06 19:20 | BAPA ---
DATE OF SERVICE: 01/06/2018 CHIEF COMPLAINT: Patient states, "I want to get back on my medications and in to see my [facility] psychiatrist." HISTORY OF PRESENT ILLNESS: The patient is a 67-year-old homeless man, sent from the [facility] at [facility] due to having disorganized thinking, being noncompliant with outpatient services. His only complaint in the emergency department was chronic back pain. According to the M1 hold which was signed by the SUPERVISOR BRAIDING at the [facility] Walk[facility]In Clinic, "client with a diagnosis of schizoaffective disorder, presents with command auditory hallucinations and disorganized thought process, impairing patient's ability to participate in voluntary outpatient treatment needed to control his symptoms." According to the [facility] evaluation at the [facility], the patient presented on the evening of 01/[address] [facility]. Client was evaluated by [facility] and allowed to spend the night for observation. Client told the clinician he was having command auditory hallucinations, that he needed to come to the [facility] for mental health support. The initial sales order clerk at the [facility] said "client is in need of refills for his psych meds as his command auditory hallucinations told him to destroy his clonazepam and lithium." However, the patient has not seen his outpatient provider, Dr. Monterroso, for several months. He had an appointment on 01/04 that he missed because he was in group home. According to the [facility] sales order clerk, "client's report of recent history to me this morning was inconsistent on several points. Client told me he didn't intentionally destroy his clonazepam and lithium yesterday, but they dissolved in the rain. Client also told me he was in [facility] for just a few hours. [facility] sales order clerk noted that the client was "a poor historian in general with disorganized thought process and limited attention span, and client was unable to provide a clear stable account of recent events before coming to the Walk-In Center." According to the [facility] chart, the client was in [facility] on 10/19/2017 , but [facility] records indicate uncertainty about "how long client was in [facility] or whether the client has had multiple episodes of incarceration over the past few months." During the [facility] evaluation, the client did not "show signs of responding to internal stimuli, but the EMT reports that he has observed the client exhibiting signs of internal stimuli as evidenced by talking to himself and laughing with no apparent stimulus." When this MD spoke with the patient on the inpatient behavioral health services unit, he was very clear that he wanted to get back on his medications and that he had missed his previous [address] Monterroso. Patient became very irritable, defensive, started yelling, raising his voice. When MD tried to understand what prevented the patient from keeping his appointments, the patient started angrily yelling "the first time I have missed any appointments in 20 years. I have only missed 2 appointments, stop criticizing me." Patient states that he ran out of his medications months ago, that he has had refills given to him at group home and that he also got refills for several days from Sarita Hercules, whom he says is a provider at the [facility]. The patient was an extremely unreliable historian and could not give dates and became very confused when trying to say when exactly he had been in group home. The patient states that he had been getting [place] assistance for housing and was living in an apartment in [place], but he was evicted, he thought in October of 2017, but the patient spent several minutes trying to come up with a date and counting months on his fingers. He said that he had been in group home for 51 days for indecent exposure. Said that he had been staying at the [facility]. The patient denied any thoughts, plans, or intents to hurt himself, or anyone else. He denied experiencing command auditory hallucinations at the time that the MD spoke with him. He denied other psychotic symptoms as well. PAST PSYCHIATRIC HISTORY: Patient is a client of [facility]. He sees Dr. Monterroso. He has been an open client with [facility] since 2013. ALLERGIES: The patient has no known drug allergies. CURRENT MEDICATIONS: The most recent medication list includes: Clonazepam 1 mg p.o. b.i.d., lithium 450 mg p.o. daily, Seroquel 300 mg p.o. q.h.s. It is unknown when the last dose of any of his medications was. LABS: White cell count was 6.61, hemoglobin 14.0, hematocrit 41.8, platelet count 205. Sodium 141, potassium 3.7, chloride 108, BUN 16, creatinine 0.6, calcium 9.3, glucose 115. Urine drug screen was negative for all drugs of abuse. Salicylate and acetaminophen levels were both undetected. [place] level was 0.3. Ethyl alcohol level was also undetected. MEDICAL HISTORY: Patient has complained of chronic back pain, unknown etiology. SURGICAL HISTORY: He has no surgical history. The hospitalist who evaluated the patient noted that he had chronic back pain without radicular symptoms and recommended Tylenol or ibuprofen as needed, no other treatment. SOCIAL HISTORY: Patient states that he grew up in [place]. Father was in the . Patient attended high school in [place]. He says that he still stays in touch with his brother and sister; however, a [facility] note from 01/23/2017 , says that the patient is "from [place] and has no social or family supports. No family that he is in touch with." According to an P prescriber note on 06/22/2017, the client's "dad was in the [employer]. Client moved to [place] when he was 5 years old, went to [place] when he was 12. Dad went to [place] when he was 17. Stole Dad's car soon after and was in foster home for a year because his mom couldn't manage him until Dad came back from [place]. He ran away from home when he was 18 years old, got arrested when he was 19 for selling hashish, joined the [employer] when he was 21 for 1 year. 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 FAMILY HISTORY: No specific substance use or mental health issues noted by patient. LEGAL HISTORY: Patient has numerous legal charges stemming from multiple incidents including, according to the [facility] report, the patient has been arrested for arson, indecent exposure, sex crime, and a restraining order. He spent a year and a half in group home, released on November 11, 2016, charged with 4th degree arson. Client reports he tried to burn signs on a freestanding post on [facility] in [place]. SUBSTANCE USE HISTORY: Patient has a history of heavy alcohol use, but states that he has currently not been drinking. He smokes pot "whenever I can get it. " He also uses tobacco, he says that he smokes the equivalent of 1-1/2 to 2 packs a day. He denies other recreational and illicit drug use. MENTAL STATUS EXAMINATION: This is an average height, overweight man, dressed in a T-shirt and pants. He is alert and oriented x4. His affect is irritable, argumentative. His demeanor is angry and hostile. He makes good eye contact. Speech rate and volume are loud, angry, rapid. His intellectual function appears to be average based upon his vocabulary, fund of knowledge, and educational history. He denies feeling sad, helpless, hopeless, worthless, and anxious. He denies experiencing any symptoms of psychosis including denying auditory and visual hallucinations, although he had previously reported those to the [facility] sales order clerk at the [facility] in the emergency department. He is denying auditory, visual hallucinations, and paranoid delusions, ideas of reference, and any bizarre thoughts at the current time. There are no signs or symptoms of rigo. There is no increase in goal-directed activity, decreased need for sleep, racing thoughts, pressured speech, or grandiose delusions. He does not have elated or elevated mood. He denies any thoughts, plans, or intents to hurt himself or anyone else. His thought process is tangential. His insight and judgment are both impaired as evidenced by his nonadherence to treatment, him missing his last [address] Monterroso. The patient becomes extremely irritable, argumentative, raises his voice, yells at the MD when questioned about the reason for missing those appointments. MD attempted to explain that the best way for the patient to ensure that he got adequate continuity of care so that he could be maintained on his regular outpatient doses of medications to treat his symptoms was for him to keep his appointments and see Dr. Monterroso on a regular basis. The patient seemed to take offense at these statements and argued with the MD because he felt the MD was "criticizing" him, when MD said that he was just trying to come up with the best and most effective treatment plan for the patient. Patient agreed to reschedule his appointment with Dr. Monterroso and to keep it and to get back on his regular outpatient medications. MD let the patient know that he would need to be started on lower dose of his medications and patient said that he understood that. IMPRESSION: 1. Schizoaffective disorder by history. 2. Cannabis use disorder, unknown severity. 3. Alcohol use disorder, unknown severity. 4. Rule out substance-induced mood disorder. 5. Lack of social support, difficulty in interpersonal relationships, recent eviction from housing, multiple legal issues, numerous episodes of group home time stemming from a wide range of felony and misdemeanor charges including arson, indecent exposure, and a possible sex offender status, chronic substance use problems as well as noncompliance and nonadherence to outpatient treatment. PLAN: 1. Admit to the Inpatient Behavioral Health Services Unit on an M1 hold. 2. Monitor closely for safety. Patient is not currently exhibiting any signs of psychosis or unsafe behavior. He is denying any thoughts, plans, or intents to hurt himself or anyone else. 3. Will continue to monitor and observe the patient. The patient is requesting to be on clonazepam instead of Ativan, stated that he would prescribe 1 mg p.o. q.h.s. per the patient's request. The patient says that he would like to be on more benzodiazepine, MD went to great lengths explaining the risks, benefits, and side effects of prescribing benzodiazepines for someone with polysubstance dependence. Patient states that he has had numerous arguments with Dr. Monterroso because she has tried to reduce his dose of clonazepam. MD did express some concerns that the patient had been going to see a nurse practitioner at the [facility] and other providers, possibly to get more benzos or to get higher doses of benzos. MD said that he would hold his prescription to 1 mg at h.s. and that he would need to follow up with his outpatient providers to decide the most appropriate dose. Patient stated that he was unable to sleep last night, MD stated that he would prescribe melatonin for the patient to use for sleep. 4. Patient states that he is willing to take lithium and Seroquel which have been his outpatient medications for a long time. We will restart those medications and titrate to effective doses as needed. 5. Estimated length of stay is 2-3 days. Patient states that he is willing to see Dr. Monterroso at [facility], will try to get him a followup appointment in a reasonable amount of time. I also recommended the patient see a adult protective caseworker and a certified addictions counselor to try to address some of his substance use issues and to find more effective treatments for his chronic insomnia than benzodiazepines which are contraindicated for this patient due to his history of polysubstance dependence. /[id number]/MODL MTDD
[2018-01-06] MEDS: QUEtiapine FUMARATE 100 MG TAB PO SCH (20:36)
[2018-01-06] MEDS: clonazePAM 1 MG TAB PO SCH (20:36)
[2018-01-07] MEDS: ACETAMINOPHEN 325 MG TAB PO PRN ×3 (05:01→20:01)
[2018-01-07] MEDS: IBUPROFEN 600 MG TAB PO PRN ×2 (07:38→15:22)
[2018-01-07] MEDS: THIAMINE HCL 100 MG TAB PO SCH (08:18)
[2018-01-07] MEDS: LITHIUM CARBONATE ER 300 MG TAB PO SCH ×2 (08:18→19:59)
[2018-01-07] MEDS: OLANZapine DISINTEGR 5 MG TAB PO PRN (14:35)
--- NOTE | 2018-01-07 19:00 | SOAPPROG ---
JEREMY Progress Note Assessment/Plan: Assessment: 67 yo with h/o schizoaffective disorder, presented to ED with SI. Plan: 01/07/18 18:56 1. Patient apologized to MD today for being "rude" yesterday. Patient says MD "just didn't get my sense of humor." He is relieved to be back on his meds and says he got "better" night's sleep last night than he expected. 2. Patient interested in seeing [facility] providers after discharge, though he has h/ o noncompliance. MD emphasized how important it was to see providers regularly so they can address his concerns before they become overwhelming. He agrees with this plan. 3. Patient exhibits irritable mood and sporadic angry outbursts primarily with one particular peer. 4. Possible d/c tomorrow once f/u appts confirmed. Subjective: Patient apologized to MD for being "rude" yesterday. Patient reports mood is "better," appetite is "good" and he slept "better" last night than prior to admission. He is glad to be back on his meds, and willing to f/u with Dr. Monterroso and providers at [facility]. He denies any SI/HI. Objective: Vital Signs Temp Pulse Resp BP Pulse Ox 36.6 C 66 16 145/88 H 95 01/07/18 06:00 01/07/18 06:00 01/07/18 06:00 01/07/18 06:00 01/07/18 06:00 MSE: Affect: Labile, angry at times Mood: "OK" TP: Linear TC: Denies any SI/ HI Insight/Judgment: Poor - Time Spent With Patient Time Spent With Patient: 15" - Pending Discharge Pending Discharge Within 24 Hours: Yes Pending Discharge Date: 01/08/18 (Possible d/c on Monday once f/u appts confirmed) Pending Discharge Time: 11:00 ICD10 Worksheet Patient Problems: Problems Problem Status Onset Chronic back pain Acute Psychosis Acute Altered mental state Acute
[2018-01-07] MEDS: clonazePAM 1 MG TAB PO SCH (19:58)
[2018-01-07] MEDS: QUEtiapine FUMARATE 100 MG TAB PO SCH (19:59)
[2018-01-08 07:10] VITALS: BP 114/78
[2018-01-08] MEDS: LITHIUM CARBONATE ER 300 MG TAB PO SCH (07:50)
[2018-01-08] MEDS: THIAMINE HCL 100 MG TAB PO SCH (07:50)
[2018-01-08] MEDS: ACETAMINOPHEN 325 MG TAB PO PRN ×2 (07:50→13:00)
--- NOTE | 2018-01-08 09:49 | BDS ---
REASON FOR ADMISSION: From the ED note dated 01/05/2018, patient was sent to the ED from [facility] for medical clearance for inpatient psychiatric treatment. The patient was seen at [facility] prior to presenting at the ER and was found to have disorganized thinking and been unable to follow his outpatient medication treatment. The patient is voluntary , agreeable with inpatient psychiatric treatment. The patient was admitted voluntarily due to being gravely disabled due to mental illness. Patient was admitted for safety, crisis stabilization, and medication management. ADMITTING DIAGNOSIS: Schizoaffective disorder, bipolar type, nonadherence to medical treatment. ADMISSION PHYSICAL EXAM: The patient was seen on 01/05/2018 for hospitalist H and P consult for medical clearance for inpatient psychiatric hospitalization and treatment. The patient was medically cleared for inpatient psychiatric hospitalization and treatment. For further details, please refer to hospitalist 's H and P consult dated 01/05/2018. ADMISSION LABS: CBC from 01/05/2018, within normal limits. BMP from 01/05/2018 , within normal limits, except creatinine was low at 0.6, and glucose was elevated at 115. Urines from 01/05/2018, within normal limits, except urine urobilinogen was elevated at 4.0. Toxicology screen from 01/05/2018 was negative for substances screened and negative for ethyl alcohol. Blanket from 01/05/2018, plasma level was 0.3 and was subtherapeutic. A1c from 01/11/18 WNL , liver function WNL, and lipid panel WNL except VLDL cholesterol was slightly elevated. MAJOR PROCEDURES OR TESTS: None. HOSPITAL COURSE: The most prominent symptoms and behaviors while the patient was here were withdrawn, disorganized, and reports of auditory hallucinations and suicidal ideation at time of admission. The patient reported that he has missed his last 2 appointments with his outpatient psychiatrist and has been off his medications. Medications were restarted at time of admission on Monday. Treatment modalities utilized during hospitalization were milieu and group therapy. Seroquel 100 mg p.o. q.h.s. was started to target mood and psychosis symptoms, was tolerated with no report of side effects. The patient reported to this INSURANCE VERIFIER that his outpatient dose of Seroquel was 300 mg p.o. q.h.s. and requested the dose to be increased prior to discharge. The patient was started on Lithobid 300 mg p.o. b.i.d. This medication was tolerated with no report of side effects. Patient to follow up on an outpatient basis for a lithium plasma level on 01/11/2018 prior to a.m. dose, and these instructions were reviewed with the patient during hospitalization. Klonopin 1 mg p.o. q.h.s. was continued to target insomnia symptoms, was tolerated with no report of side effects and with good response. The patient has improved considerably, with no signs of psychiatric symptoms and no psychiatric symptoms expressed at time of discharge. The patient reports he has improved since admission, states to be in stable condition, feels safe to discharge, and he contracts for safety. Patient's response to treatment was good. There were no adverse or unexpected results of treatment. The patient was safe throughout his stay, active in treatment, engaged in groups, and was appropriate with staff and other patients. The patient met with the treatment team prior to discharge to assess readiness to discharge and review discharge plan. The treatment team consensus is the patient is in stable condition, has a safe discharge plan, and is ready to discharge today. CONDITION ON DISCHARGE: Patient is in stable condition and is no longer a danger to self or others, and is not gravely disabled due to mental illness. Patient is no longer in need of inpatient level of care, and can be safely and effectively treated within the community. The patients level of risk at time of discharge is low. MSE: The patient is casually dressed and with good hygiene , and looks stated age. Patient is sitting, posture is upright, and position is relaxed. Patient appears awake, alert, and responds appropriately and reasonably during interview. Patient is engaged, relates well to interviewer, and emotional facial expression is appropriate to situation and changes appropriately with topic. Patient is cooperative, makes comfortable eye contact , and movements are voluntary, deliberate, coordinated, and smooth and even with no inappropriate movements. Patient makes laryngeal sounds effortlessly and shares conversation appropriately; pace of conversation is appropriate, and stream of talking is fluent; articulation is clear and understandable; word choice is effortless and appropriate for education level; completes sentences, occasionally pausing to think; rate and volume are appropriate for interview and setting. Patient reports mood as euthymic. Patients affect is stable with full variable range, congruent with mood, and appropriate to speech and circumstances. Patient has linear and logical thinking, with no loose associations, tangential thought, thought blocking, concrete thinking, or any other signs of formal thought disorder. Patient denies suicidal and homicidal ideation, and denies hallucinations and delusions. Patient appears to be a reliable historian with sound judgement and good insight into current condition. Patient has no apparent dysfunction in recent or remote memory noted , and no evidence of gross cognitive dysfunction noted at any point during the interview. DISCHARGE DIAGNOSIS: Schizoaffective disorder, bipolar type. CURRENT MEDICATIONS: After reviewing options, risks, and benefits with the patient, the patient agrees to continue Lithobid 300 mg p.o. b.i.d., Seroquel 300 mg p.o. q.h.s. Patient request prescriptions for these medications at time of discharge. Prescriptions for 30 days are provided. The prescriptions are reviewed with the patient at time of discharge to ensure accuracy and patient understanding. DISPOSITION: Patient left hospital independently and voluntarily and plans to return home. FOLLOWUP: graphics coordinator reports the appropriate outpatient follow-up services have been established and outpatient appointments have been scheduled. The patient received written instructions with times and dates of outpatient follow-up appointments. The following follow-up recommendations were provided to the patient at discharge: Continue psychotropic medications as prescribed and attend appointments as scheduled. Report any side effects to a psychiatric outpatient provider, a primary care provider, or other health director of medicare. Address any questions or problems concerning the psychotropic medications with a psychiatric outpatient provider, a primary care provider, or other health director of medicare. Contact [facility] or [facility], or go to the nearest emergency room, if you are ever a danger to yourself/others, or unable to care for yourself. As soon as possible, establish a routine medication management treatment with a psychiatric provider, establish routine therapy appointments, and follow-up with a primary care provider. LEGAL COURSE: The patient was admitted voluntarily for inpatient psychiatric hospitalization, and patient discharged today following independently and voluntarily. ATTITUDE AT TIME OF DISCHARGE: The patients attitude was positive at time of discharge, and patient reports looking forward to discharging today. The patient reports he feels safe to discharge, is no longer a danger to himself or others, is in stable condition, and contracts for safety. Patient states he will continue medications as prescribed, and establish medication management treatment with an outpatient provider after discharge. Patient reports he understands the information that has been provided to him, and he understands, accepts, and agrees to psychotropic medications. Patient describes internal protective factors as the coping skills he has learned while hospitalized here, and he plans to continue to practice these coping skills after discharge. LABS AND STUDIES: There were no pending labs or studies at time of discharge. Patient provided order for lithium level 01/11/18 prior to AM dose. This order was reviewed with patient at time of discharge, and patient reports he plans to go to [facility] to have lithium level on 01/11/18 in the morning before his morning dose of lithium. Patient reports he will report results to his outpatient psychiatrist. ADVANCE DIRECTIVES: There were no advance directives on file, and the patient was full code during this hospitalization. The following psychotropic medication treatment informed consent and recommendations were provided to the patient at time of discharge. Patient reports he understands, accepts, and agrees to the information that has been provided. PSYCHOTROPIC MEDICATION TREATMENT INFORMED CONSENT and RECOMMENDATIONS: Review nature of condition, diagnosis, and prognosis. Review nature and purpose of psychotropic medication treatment. Review type of psychotropic medications being prescribed. Review risk and benefits of psychotropic medication treatment. Review probable length of time will need to take medications. Review risk and benefits of not undergoing psychotropic medication treatment. Review alternative treatments to psychotropic medications. Review psychotropic medications contraindications, side effects, and importance of reporting any side effects to a psychiatric provider, primary care provider, or other health director of medicare. Review importance of her asking a psychiatric provider or primary care provider any questions or problems concerning the psychotropic medications. Review safety plan and the importance to contact [facility] or [facility] , or go to the nearest emergency room, if ever a danger to yourself/others, or unable to care for yourself. Recommend upon discharge to establish routine medication management treatment with a psychiatric provider, establish routine therapy appointments, and follow-up with a primary care provider. Verify patient understands, accepts, and agrees to the information that has been provided. /[id number]/MODL MTDD
[2018-01-08] MEDS: OLANZapine DISINTEGR 5 MG TAB PO PRN (11:57)
--- NOTE | 2018-01-08 14:08 | ASMTCMCOM ---
CM Note CM Note Notes: Pt. reports feeling "better than not so good". Pt. and CC discussed pt's follow up appointments and how one will be a telehealth appointment . Pt. stated he can get himself to his follow up appointments. Pt. stated he needs to call his brother at 3:30pm today to talk about getting two money orders sent to pt. Pt. requested a bus pass and to stay at the [facility]. Pt. denied SI, Hi, AVH and paranoia. Pt. attended the treatment team planning meeting this morning and stated he is not hearing command hallucinations and if he does hear voices, they are quieter, "like thoughts". Staff report pt. sleeping 8.5 hours and being medication complaint. Pt's follow up appointments are: [facility] Corey Santamaria [address] [place] [id number] Next Therapy appointment: Monday (01/10/18) at 1:30pm, please check in at 1:15pm with [facility] Santam[facility] Brandon Fuller - Nurse Perscriber [address] [place] [address], 2nd [place] [address] Next prescriber appointment: Monday (01/09/18) at 3:15pm, please check in at 3:00pm with Brandon Fuller *Please notify patient this is a telehealth appt., so hell be meeting the prescriber via video screen. If he cant make this, please ask him to call and cancel. Date Signed: 01/08/2018 02:06 PM Electronically Signed By:Gloria Rodriguez
== END 2018-01-08 16:00 | disposition home or self-care (01) | DRG 885 ==
LOC: EDUNIT# → BBEH 20:55
PROVIDERS: ADMIT Psychiatry & Neurology Psychiatry; ATTEND Psychiatry & Neurology Psychiatry
DX: F25.0 Schizoaffective disorder, bipolar type (principal); T43.506A Underdosing of unspecified antipsychotics and neuroleptics, initial encounter; G89.29 Other chronic pain; F10.10 Alcohol abuse, uncomplicated; Z72.0 Tobacco use
CPT/HCPCS: 80305; G0480

== ENCOUNTER 2018-01-17 15:28 | Emergency (ER) | payer OTHER ==
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
[2018-01-17 15:39] VITALS: BP 141/90
--- NOTE | 2018-01-17 16:34 | ASMTCMCOM ---
CM Note CM Note Notes: Chart reviewed for this complex care patient. Please also see CM note from 01/03/18 as well as discharge summary ([facility]) on 01/08/18. I have contacted SIMON Rey Orientation And Mobility Instructor at [facility] regarding patient's return visits to the ED, and have faxed a copy of ER report from today (01/17/18) and D/C summary from 01/08/[address] Hercules and Dr. Carmona at [facility] Date Signed: 01/17/2018 04:34 PM Electronically Signed By:Daria Licona RN
== END 2018-01-17 16:08 | disposition home or self-care (01) ==
DX: F20.0 Paranoid schizophrenia (principal); I10 Essential (primary) hypertension; E78.5 Hyperlipidemia, unspecified; F17.200 Nicotine dependence, unspecified, uncomplicated; Z91.5 Personal history of self-harm

== ENCOUNTER 2018-05-24 00:45 | Emergency (ER) | payer MEDICAID, OTHER ==
[2018-05-24 01:10] VITALS: BP 129/60
[2018-05-24] MEDS ORDERED: IBUPROFEN 600 MG TAB PO ONE (01:16)
--- NOTE | 2018-05-24 01:17 | EDPHY ---
H & P Stated Complaint: Chronic BP Time Seen by Provider: 05/24/18 01:08 HPI/ROS: Chief Complaint: Back pain HPI: 67-year-old homeless male with a history of chronic back pain is presenting with persistent back pain which is going going on for several weeks. Patient states that he has not been taking any medicine for this. No new numbness or weakness. Said hurts him to walk more than 10 min. No falls. No fevers or chills. No difficulty urinating. Patient has had CTs and MRIs in the past with negative findings. He says his pain is similar to a prior episodes. Is about a 10. ROS: 10 systems were reviewed and were negative except those elements noted in the HPI. PMH: Chronic back pain, psychiatric illness Social History: Positive smoking, currently homeless Family History: non-contributory Physical Exam: Gen: Awake, Alert, No Distress HEENT: Nose: no rhinorrhea Eyes: PERRLA, EOMI Mouth: Moist mucosa Neck: Supple, no JVD Back: no CVA tenderness, no midline tenderness Ext: no edema, non-tender, capillary refills less than 2 sec bilaterally, 2+ dorsalis pedis pulses bilaterally Skin: no rash Neuro: CN II-XII intact, Sensation grossly intact, Strength 5/5 in bilateral proximal and distal lower extremities. Normal plantar and dorsiflexion. Sensations intact in all dermatomes. 2+ deep tendon reflexes in bilateral patellar tendons. - Personal History Current Tetanus Diphtheria and Acellular Pertussis (TDAP): Yes Tetanus Vaccine Date: 2006 - Medical/Surgical History Hx Asthma: No Hx Chronic Respiratory Disease: No Hx Diabetes: No Hx Cardiac Disease: No Hx Renal Disease: No Hx Cirrhosis: No Hx Alcoholism: Yes Hx HIV/AIDS: No Hx Splenectomy or Spleen Trauma: No Other PMH: PMHx: HTN, Hyperlipidemia, bipolar, schizoaffective - Social History Smoking Status: Heavy smoker Constitutional: Initial Vital Signs Temperature (C) 36.3 C 05/24/18 01:07 Heart Rate 83 05/24/18 01:07 Respiratory Rate 16 05/24/18 01:07 Blood Pressure 129/60 H 05/24/18 01:07 O2 Sat (%) 96 05/24/18 01:07 O2 Delivery Mode Room Air Allergies/Adverse Reactions: No Known Allergies Allergy (Verified 05/24/18 01:07) Home Medications: Medication Instructions Recorded [place] [facility] [Lithobid 300 300 mg PO BID 30 Days #60 tab 01/08/18 mg (*)] QUEtiapine FUMARATE [Seroquel 300 mg PO HS 30 Days #30 tab 01/08/18 300mg (*)] clonazePAM [klonoPIN (*)] 1 mg PO HS 30 Days #30 tab 01/08/18 Medical Decision Making ED Course/Re-evaluation: 67-year-old homeless male with chronic back pain with an exacerbation. He has not taken any medications. He is completely neurologically intact. Does not have any reproducible back pain at this time. No urinary symptoms. Does not have any red flags for acute infectious or neurosurgical emergency. Will treat with anti-inflammatories [facility]. Departure - Departure Disposition: Home, Routine, Self-Care Clinical Impression: Chronic back pain Condition: Good Instructions: Chronic Back Pain (DC) Additional Instructions: Take ibuprofen, 600 mg every 8 hr. You may alternate with acetaminophen, 1000 mg every 8 hr. Follow up at [facility] in 3-4 days for further evaluation. Referrals: Sarita Hercules MD [Primary Care Provider] - As per Instructions
== END 2018-05-24 01:42 | disposition home or self-care (01) ==
DX: M54.9 Dorsalgia, unspecified (principal); G89.29 Other chronic pain; I10 Essential (primary) hypertension; E78.5 Hyperlipidemia, unspecified; F31.9 Bipolar disorder, unspecified; Z59.0 Homelessness